=== PATIENT | female | born 1970 | race Caucasian/White ===

== ENCOUNTER → 2018-12-25 15:43 | Outpatient (CLI) | payer BC, SELFPAY ==
[2018-12-25 16:23] LABS: Basophils # 0.1 K/mm3 (0-0.2); Basophils % 0.5 % (0.1-2.0); Eosinophils # 0.3 K/mm3 (0.0-0.4); Eosinophils % 1.9 % (0.1-12.0); Hematocrit 44.7 % (37.0-47.0); Lymphocytes # 2.5 K/mm3 (0.7-4.5); Lymphocytes % 18.8 % (10-50); Mean Corpuscular HGB Conc 31.4 g/dL (31.8-35.4); Mean Platelet Volume 6.6 fl (7.4-10.4); Monocytes # 0.5 K/mm3 (0.1-1.0); Monocytes % 3.4 % (1.7-9.3); Neutrophils % 75.4 % (37.0-80.0); Platelet Count 431 K/mm3 (142-424); Red Blood Count 4.52 M/mm3 (4.20-5.40); Red Cell Distribution Width 13.6 % (11.5-17.5); White Blood Count 13.3 K/mm3 (4.8-10.8)
[2018-12-25 17:12] LABS: Alanine Aminotransferase 39 U/L (12-78); Albumin Level 4.4 gm/dL (3.4-5.0); Albumin/Globulin Ratio 1.2 (1.1-1.8); Alkaline Phosphatase 98 U/L (46-116); Aspartate Amino Transferase 21 U/L (15-37); Bilirubin,Total 0.2 mg/dL (0.2-1.0); Blood Urea Nitrogen 10 mg/dL (7-18); C-Reactive Protein 0.5 mg/dL (0.0-0.9); Calcium 9.5 mg/dL (8.5-10.1); Carbon Dioxide 26 mmol/L (21.0-32.0); Chloride 103 mmol/L (98-107); Creatinine,Serum 0.56 mg/dL (0.55-1.02); Estimated Glomerular Filt Rate 115 ml/min (>60); GFR (African American) 139 ML/MIN (>60); Globulin 3.6 gm/dl (1.3-3.2); Glucose 99 mg/dL (74-106); Sodium 141 mmol/L (136-145)
[2018-12-25 17:39] LABS: Erythrocyte Sedimentation Rate 13 mm/hr (0-20)
[2018-12-25 18:19] LABS: Amphetamine/Metha Screen,Urine Negative ng/mL (<1000); Barbiturates Screen,Urine Negative ng/mL (<200); Benzodiazepines Screen,Urine Negative ng/mL (<200); Cannabinoid Screen,Urine Negative ng/mL (<50); Cocaine Screen,Urine Negative ng/mL (<300); Methadone Screen,Urine Negative ng/mL (<300); Opiate Screen,Urine Negative ng/mL (<300); Phencyclidine Screen,Urine Negative ng/mL (<25)
[2018-12-27 16:53] LABS: Vitamin B12 282 pg/mL (232-1245); Vitamin D 25 Hydroxy 14.8 ng/mL (30.0-100.0)
== END ==
PROVIDERS: PCP Internal Medicine Adolescent Medicine; Visit Provider Nurse Practitioner Family
DX: R53.83 Other fatigue (principal); M12.9 Arthropathy, unspecified
CPT/HCPCS: 36415; 80053; 80305; 82607; 82652; 85025; 85651; 86140

== ENCOUNTER 2019-09-10 19:02 | Emergency (ER) | payer BC, SELFPAY ==
[2019-09-10 19:02] VITALS: BP 138/101; PULSE 77; RESP 16; TEMP 36.8; O2SAT 98; BMI 26.8
--- NOTE | 2019-09-10 19:05 | CT_ITS ---
PROCEDURE: CT ABDOMEN PELVIS W CON CLINICAL INDICATION: LLQ abdominal pain COMPARISON: No exams were available for comparison TECHNIQUE: IV Contrast: 75ML OPTIRAY 350 Oral Contrast none Axial images obtained with sagittal and coronal reformats. All CT scans at the facility use one or more dose reduction, viz: automated exposure control, ma/kV adjustment per patient size (including targeted exams where dose is matched to indication, i.e. head), or iterative reconstruction technique. FINDINGS: LOWER THORAX: There is a faint nodular opacity in the right middle lobe which measures approximately 5 mm. ABDOMEN & PELVIS: There is mild diffuse fatty liver infiltration. There is a 1 cm hypodensity in the quadrate area of the liver, segment 4. The spleen, adrenal glands, pancreas, has an unremarkable appearance. There is a 1 cm hypodensity in the right kidney consistent with a renal cyst. There is mild left hydronephrosis and hydroureter secondary to a 3 mm stone in the distal left ureter 2 cm proximal to the urinary bladder. No evidence of appendicitis, intestinal obstruction, free air, or diverticulitis. There is a small umbilical hernia which contains fat. No pelvic mass or abnormal fluid collection in the pelvis. IMPRESSION: 1. 3 mm left distal ureteral stone with left-sided obstructive uropathy. 2. Indeterminate 1 cm hypodense lesion of the quadrate area of the liver, segment 4. MRI with hemangioma protocol may provide further evaluation. 3. Indeterminate 5 mm right middle lobe nodule. Consider six-month follow-up Dictated by: Nolberto Quintanilla MD 09/11/2019 11:59 Electronically signed by Nolberto Quintanilla MD in [place] 09/11/2019 11:59
[2019-09-10 19:22] LABS: Microscopic, Urine URINE MICROSCOPIC (MICROSCOPIC)
[2019-09-10 19:28] LABS: Basophils # 0.1 K/mm3 (0-0.2); Basophils % 0.8 % (0.1-2.0); Eosinophils # 0.2 K/mm3 (0.0-0.4); Eosinophils % 1.3 % (0.1-12.0); Hematocrit 41.1 % (37.0-47.0); Hemoglobin 13.8 g/dL (12.2-16.2); Lymphocytes % 26.8 % (10-50); Mean Corpuscular HGB Conc 33.5 g/dL (31.8-35.4); Mean Corpuscular Hemoglobin 31.5 pg (27.0-31.2); Mean Platelet Volume 7.3 fl (7.4-10.4); Monocytes # 0.6 K/mm3 (0.1-1.0); Monocytes % 4.2 % (1.7-9.3); Neutrophils % 66.9 % (37.0-80.0); Platelet Count 371 K/mm3 (142-424); Red Blood Count 4.37 M/mm3 (4.20-5.40); Red Cell Distribution Width 14.3 % (11.5-17.5); White Blood Count 14.9 K/mm3 (4.8-10.8)
--- NOTE | 2019-09-10 19:28 | PC.NURSE ---
Pt to Radiology for CT
[2019-09-10 19:30] LABS: Chloride 105 mmol/L (98-107); Potassium 3.7 mmoL/L (3.5-5.1); Sodium 139 mmol/L (136-145)
[2019-09-10 19:32] LABS: Appearance,Urine CLEAR (Clear); Blood, Urine 3+ (Negative); Color,Urine YELLOW (Yellow); Glucose,Urine (UA) Negative (Negative); Ketones,Urine TRACE (Negative); Leukocyte Esterase,Urine TRACE (Negative); Nitrate,Urine Negative (Negative); PH,Urine 5.5 (5.0-8.5); Protein,Urine 1+ (Negative); Specific Gravity, Urine >= 1.030 (1.005-1.030); Urobilinogen,Urine 0.2 EU/dl (0.2)
[2019-09-10 19:33] LABS: Alanine Aminotransferase 26 U/L (12-78); Alkaline Phosphatase 88 U/L (38-126); Anion Gap 13.7 mEq/L (5-15); Aspartate Amino Transferase 22 U/L (14-36); Bilirubin,Total 0.6 mg/dl (0.2-1.3); Blood Urea Nitrogen 10 mg/dl (7-17); Calcium 9.7 mg/dl (8.4-10.2); Carbon Dioxide 24 mmol/L (22.0-30.0); Creatinine Clearance Estimated 101 mL/min (50-200); Estimated Glomerular Filt Rate 76 ml/min (>60); GFR (African American) 92 ML/MIN (>60); Glucose 126 mg/dl (74-100); Lipase 15 U/L (23-300)
[2019-09-10 19:34] LABS: Albumin Level 4.6 g/dl (3.5-5.0); Albumin/Globulin Ratio 1.6 (1.1-1.8); Globulin 2.9 g/dL (1.3-3.2); Total Protein,Serum 7.5 g/dl (6.3-8.2)
--- NOTE | 2019-09-10 19:34 | HMH.EDABDPAI ---
ED Disposition Clinical Impression: Nephrolithiasis Disposition: Home, Self-Care Condition on Discharge: Good Instructions: DI for Acute Abdomen, DI for Kidney Stones Additional Instructions: You have been evaluated for lower abdominal pain, diagnosed with a kidney stone that is in transit. Please take Tylenol as needed for anti-inflammatory and pain. Take Zofran for nausea and vomiting. Follow-up with your primary care doctor in 2 to 3 days for symptom recheck. Return to the emergency department if you have any new or worsening symptoms, fevers, vomiting, worsening pain. Prescriptions: Ketorolac Tromethamine [Toradol 10mg tablet] 10 mg PO Q6H 3 Days #20 tab Prescription Printed Ondansetron [Zofran 4mg ODT] 4 mg PO Q6 PRN 3 Days #12 tab.rapdis PRN Reason: Nausea Prescription Printed Referrals: Wilmer Ritter MD [Staff Physician] - Time of Disposition: 20:04 - Critical Care Critical Care Time: No Attestation: On 09/10/19, the high probability of a clinically significant, sudden or life threatening deterioration of the following system(s) required my full and direct attention, intervention and personal management. The time I documented below is in addition to time spent performing reported procedures but includes the following listed in this critical care notation. Medical Decision Making - Gavin Inquiry Pt receiving controlled substance: No Vital Signs: 09/10/19 19:02 Temperature 98.3 F Temperature Source Oral Pulse Rate [Left Radial] 77 Respiratory Rate 16 Blood Pressure [Right Arm] 138/101 H Blood Pressure Mean [Right Arm] 113 Blood Pressure Source [Right Arm] Automatic Cuff Blood Pressure Position [Right Arm] Sitting 02 Sat by Pulse Oximetry 98 Oxygen Delivery Method Room Air - Lab Data Lab Results 09/10/19 19:15: Urine Color Yellow, Urine Appearance Clear, Urine pH 5.5, Ur Specific [place] >= 1.030, Urine Protein 1+, Urine Glucose (UA) Negative, Urine Ketones Trace, Urine Blood 3+, Urine Nitrate Negative, Urine Bilirubin 1+ A, Urine Urobilinogen 0.2, Ur Leukocyte Esterase Trace, Urine RBC 20-50, Urine WBC 3-5, Ur Squamous Epith Cells 5-10, Urine Bacteria Trace 09/10/19 19:15: WBC 14.9 H, RBC 4.37, Hgb 13.8, Hct 41.1, MCV 94.0, MCH 31.5 H, MCHC 33.5, RDW 14.3, Plt Count 371, MPV 7.3 L, Neut % (Auto) 66.9, Lymph % (Auto) 26.8, [place] % (Auto) 4.2, Eos % (Auto) 1.3, Baso % (Auto) 0.8, Neut # (Auto) 10.0 H, Lymph # (Auto) 4.0, [place] # (Auto) 0.6, Eos # (Auto) 0.2, Baso # (Auto) 0.1 09/10/19 19:15: Sodium 139, Potassium 3.7, Chloride 105, Carbon Dioxide 24, Anion Gap 13.7, BUN 10, Creatinine 0.80, Estimated Creat Clear 101, Estimated GFR 76, Est GFR ( Amer) 92, Glucose 126 H, Calcium 9.7, Total Bilirubin 0.6, AST 22, ALT 26, Alkaline Phosphatase 88, Total Protein 7.5, Albumin 4.6, Globulin 2.9, Albumin/Globulin Ratio 1.6, Lipase 15 L Result diagrams: 09/10/19 19:15 09/10/19 19:15 Orders (Tests/Meds): ED MEDICATIONS Generic Name Dose Route Start Last Admin Trade Name Freq PRN Reason Stop Dose Admin Sodium Chloride 1,000 mls @ 999 mls/hr 09/10/19 19:30 09/10/19 19:24 Sod Chlor 0.9% 1000ml Bag IV 09/10/19 20:30 999 mls/hr .Q1H1M BUD Administration Discontinued Medications Generic Name Dose Route Start Last Admin Trade Name Freq PRN Reason Stop Dose Admin Ioversol 75 ml 09/10/19 19:47 09/10/19 19:49 Rad-Optiray 350 100ml Vial IV 09/10/19 19:48 75 ml ONCE ONE Administration Protocol Ketorolac Tromethamine 30 mg 09/10/19 19:22 09/10/19 19:23 Toradol 30mg/Ml Vial IV 09/10/19 19:23 30 mg ONCE ONE Administration Ondansetron HCl 4 mg 09/10/19 19:22 09/10/19 19:24 Zofran 4mg/2ml Vial IV 09/10/19 19:23 4 mg ONCE ONE Administration Sodium Chloride 10 ml 09/10/19 19:47 09/10/19 19:49 Rad-Saline Flush 10ml Syringe IV 09/10/19 19:48 10 ml ONCE ONE Administration ORDERS Category Date Time Status CT abdomen pelvi
[2019-09-10 19:43] LABS: Bilirubin,Urine 1+ (Negative)
[2019-09-10 19:47] LABS: RBC,Urine 20-50 #/hpf (0-3)
[2019-09-10 19:48] LABS: Bacteria,Urine Trace /lpf
[2019-09-10 20:25] VITALS: BP 159/93; PULSE 84; RESP 18; O2SAT 100
[2019-09-10 20:40] VITALS: BP 160/87; PULSE 92; RESP 16; TEMP 36.8; O2SAT 98
[2019-09-10 20:44] VITALS: BP 160/87; PULSE 87; RESP 18; O2SAT 97
== END 2019-09-10 20:51 | disposition home or self-care (01) ==
PROVIDERS: Emergency Provider Emergency Medicine; PCP Nurse Practitioner Family
DX: N13.2 Hydronephrosis with renal and ureteral calculous obstruction (principal); Z88.5 Allergy status to narcotic agent; F17.210 Nicotine dependence, cigarettes, uncomplicated
CPT/HCPCS: 74177; 80053; 81001; 83690; 85025; 96365; 96375; 99283; J2405; Q9967

== ENCOUNTER → 2019-09-16 13:39 | Outpatient (CLI) | payer BC, SELFPAY ==
--- NOTE | 2019-09-16 13:49 | XR_ITS ---
PROCEDURE: XR KUB CLINICAL INDICATION: left ureteral stone COMPARISON: CT ABDOMEN PELVIS W CON from 09/10/2019 FINDINGS: Gas pattern-The bowel gas pattern is unremarkable. No obvious obstruction. Calcifications-there is a phlebolith on both sides of the lower pelvis. The tiny distal left ureteral calculus seen on the CT scan abdomen pelvis stone protocol 09/10/2019 is not definitely seen and likely was passed. However there is a very tiny questionable opacity just inferior to the left SI joint which could be the distal ureteral calculus which has migrated superiorly or was pushed back with instrumentation. There is little or no stool to obscure adequate visualization of the lower pelvis. IMPRESSION: Probable interval passage of the small distal ureteral calculus left-side on previous CT exam, however see discussion above Dictated by: Dr. Kehinde Bates MD 09/16/2019 15:[address] Kehinde Bates MD in [place] 09/16/2019 15:02
== END ==
PROVIDERS: PCP Nurse Practitioner Family; Visit Provider Urology
DX: N20.1 Calculus of ureter (principal)
CPT/HCPCS: 74018

== ENCOUNTER → 2019-10-31 08:16 | Outpatient (CLI) | payer BC, SELFPAY ==
--- NOTE | 2019-10-31 08:25 | MM_ITS ---
PROCEDURE: MM DIG SCREENING MAMM BI W/CAD DIGITAL BREAST TOMOSYNTHESIS INCLUDED Patient Age:48Y CLINICAL INDICATION: SCREENING 48-year-old but no hormones no new complaints Family history. Paternal cousin with breast cancer premenopausal COMPARISON: DMSB DIG MAMM-SCREEN [place] from 03/23/2016 DMDXUAVR DIG MAMM-DX UNI A/VW-RT W/CAD from 04/20/2016 TECHNIQUE: Standard CC and MLO images were obtained. R2 CAD reviewed. Bilateral digital breast tomosynthesis included. FINDINGS: Low-density breast with generalized fatty replacement. No dominant nor suspicious mass; no suspicious calcifications. CAD highlights no areas of concern. Bilateral follow-up in 1 year recommended IMPRESSION: Stable mammogram No no significant change since prior studies t . Bilateral follow-up 1 year BI-RAD Category: 1 Negative FOLLOW-UP: 1YR 1 Year Follow-up (A letter has been sent to the patient regarding results of the study.) Dictated by: Garland Lemus MD 11/07/2019 10:37 Electronically signed by Garland Lemus MD in [place] 11/07/2019 10:37
--- NOTE | 2019-10-31 09:09 | MR_ITS ---
PROCEDURE: MR ABDOMEN WO/W CON CLINICAL INDICATION: LIVER LESION Abnormal ct. Diarrhea. 15ml prohance given. Lot: [id number] exp: Oct 2019 ct 09-10-19 COMPARISON: CT ABDOMEN PELVIS W CON from 09/10/2019 TECHNIQUE: Routine multiplanar multi echo sequences are performed without and with gadolinium enhancement with hemangioma protocol. FINDINGS: There was an area of decreased attenuation in the caudate lobe of the liver measuring approximately 8 mm. This area does show some decreased signal on the out of phase images suggesting an area of focal fatty infiltration. The liver does show other areas of heterogeneous decreased signal on the out of phase images consistent with heterogeneous fatty liver involvement. There is no abnormal enhancement in the area of concern. No abnormal T2 signal in this region as well. No other lesions are evident. There is a few small renal cysts. The spleen, pancreas, adrenal glands, and gallbladder have an unremarkable appearance. IMPRESSION: The area of concern in the caudate lobe of the liver is felt to be due to an area focal fatty infiltration along with other areas of fatty infiltration of the liver. Recommend six-month follow-up to confirm stability. Dictated by: Nolberto Quintanilla MD 11/01/2019 10:05 Electronically signed by Nolberto Quintanilla MD in [place] 11/01/2019 10:05
== END ==
PROVIDERS: PCP Nurse Practitioner Family; Visit Provider Nurse Practitioner Family
DX: Z12.31 Encounter for screening mammogram for malignant neoplasm of breast (principal); K76.9 Liver disease, unspecified
CPT/HCPCS: 74183; 77063; 77067; A9576

== ENCOUNTER → 2020-01-21 16:00 | Outpatient (CLI) | payer BC, SELFPAY ==
[2020-01-21 19:51] LABS: Coronavirus 19 IgG Antibody Negative (Negative); Coronavirus 19 IgM Antibody Negative (Negative)
== END ==
PROVIDERS: Visit Provider Internal Medicine Gastroenterology
DX: Z01.818 Encounter for other preprocedural examination (principal); Z12.11 Encounter for screening for malignant neoplasm of colon
CPT/HCPCS: 36415; 86328

== ENCOUNTER 2024-12-12 15:07 | Outpatient (CLI) | payer OTHER, SELFPAY ==
--- OUTSIDE RECORDS SUMMARY | 2024-07-12 17:30 | XMS_ITS ---
Author Organization [facility] CINDY Address [address] [place] [address] Care Team Providers Care Ground Host/Hostess Name Role Phone Wilfredo Maya Primary Care Provider McNees, Birdie Unavailable [phone] Wilfredo Maya Unavailable Unavailable Migration, Provider Unavailable Unavailable Allergies Allergen (clinical drug ingredient) Drug/Non Drug Allergy documented on EMR Reaction Allergy Type Onset Date Status codeine Codeine itching, vomiting Drug Allergy Active [facility] Conversion Encounter Medications Medication SIG (Take, [...] Active Encounters Encounter Location Date Provider Diagnosis [facility] [address] [facility] 36 [facility] [address] [place] [address] 07/12/2024 Provider Migration COPD exacerbation J44.1 Assessments [...] Appt Details Provider Name:Birdie Germain Jake Anna, 12/16/2024 03:45:00 PM, [address] [facility] [address] [facility], [address], [place], [address], Progress Notes * Karla DUNCAN DDOB:1970 (54 yo F)Acc No.[id number]:07/12/2024 Patient: Preston Karla GOMES Provider: Rosenda wyatt Migration :1970 A ge:53 Y S ex:Female Date:07/12/2024 Address:[address] Pcp:Wilfredo Maya Subjective: * Chief Complaints: [...] Electronic signature of Prov ider Migration on 12/12/2024 at 03:10 PM EDT Sign off status: Pending * Provider: Rosenda wyatt Migration Date: 07/12/2024 Generated for Chris diaz/Max/Carlinitting on: 0 12/12/2024 03:10 PM EDT
--- OUTSIDE RECORDS SUMMARY | 2024-08-08 11:00 | XMS_ITS ---
Author Organization [facility] CINDY Address [address] [facility] 36 [facility] [address] [place] [address] Care Team Providers Care Gearcase Assembler Name Role Phone Wilfredo Maya Primary Care Provider [phone] Birdie Chacon [phone] Wilfredo Maya Unavailable Unavailable REASON FOR VISIT annual Encounters Encounter Location Date Provider Diagnosis [address] [address] 08/08/2024 Birdie Chacon Plan Of Treatment Next Appt Details Provider Name:Birdie Rhoades, 12/16/2024 03:45:00 PM, [address], [address], [place], [address], Progress Notes * DAKOTA Karla DDOB:1970 (54 yo F)Acc No.[id number]:08/08/2024 Progress Notes Patient: Cindy NORRIShailee Lacy Provider: Mitzi Chacon APRN :1970 A ge:53 Y S ex:Female Date:08/08/2024 Address: [address], [place], [place] Pcp:Wilfredo Maya Subjective: * Chief Complaints: * 1 . Annual. * Medical History: Objective: * Vitals: Assessment: Plan: * Treatment: * * Electronic signature of Jan Chacon APRN on 12/12/2024 at 03:10 PM EDT Sign off status: Pending * Provider: Mitzi Chacon APRN Date: 0 08/08/2024 Generated for hCris diaz/Max/Tera on: 0 12/12/2024 03:10 PM EDT
--- OUTSIDE RECORDS SUMMARY | 2024-11-25 08:00 | XMS_ITS ---
Author Organization [facility] HARIKA Lacy CINDY Address [address] [facility] [address] [facility] [address] [place] [address] Care Team Providers Care Grinder Set Up Operator External Name Role Phone Wilfredo Maya Primary Care Provider Birdie Chacon Unavailable [phone] Wilfredo Maya Unavailable Unavailable Allergies Allergen (clinical drug ingredient) Drug/Non Drug Allergy documented on EMR Reaction Allergy Type Onset Date Status codeine Codeine itching, vomiting Drug Allergy Active Reason For Referral Reason CT lung cancer scree keisha, not on Sunday befor or the Sunday after Diagnosis 1 Tobacco use disorder (F17.200) Referral Organization [facility] BRAIN EMANUEL Referring Provider First Name Birdie Referring Provider Last Name Oswaldo Referring Provider Speciality [facility] ctice Referred Organization [facility] Referred Address [address] [place] [address], [facility] Referred Provider Specialty Diagnostic R adiology General Notes Su Carranza 2024 03:29:32 PM >sent to [facility] Referral Priority Routine REASON FOR VISIT Short [...] 11/25/2024 Encounters Encounter Location Date [facility] [address] [place], [place] [address] 11/25/2024 Birdie Oswaldo COPD with chronic bronchitis J44.89 ; Shortness [...] in 3-4 weeks for AWV and labs Pending Test Test Name Order Date CT Scan : Chest, Lung Cancer Screening 0 11/25/2024 Referrals Referral Date Details 11/25/2024 11/25/2024, CT lung cancer screening, not on Sunday befor or the Sunday after , [address], [place], [address], Next Appt Details Follow Up: 3 Weeks, Reason: Provider Name:Birdie Rhoades, 12/16/2024 03:45:00 PM, [address], [address], [place], [address], Progress Notes * Karla WATTS DDOB:1970 (54 yo F)Acc No.[id number]:11/25/2024 Progress Notes Patient: Preston JOSEPHCHRISPrestonKarla Provider: Mitzi Chacon APRN :1970 A ge:54 Y S ex:Female Date:11/25/2024 Address:[address] [place] Pcp:Wilfredo Maya Subjective: * Chief Complaints: * [...] use disorder - F17.200 Plan: * Treatment: Notes: Likely related to chronic bronchitits. Needs CT imaging given her ongoing tobacco use and recent weight loss . Change inhaler to Breztri, albuterol PRN Smoking cessation counseling provider RTC in 3-4 weeks for AWV and labs??2.?Shortness of breath?Imaging: CT Scan : Chest, Lung Cancer Screening* 3.?Tobacco use disorder?Imaging: CT Scan : Chest, Lung Cancer Screening* ? Referral To: ?Reason:CT lung cancer screening, not on Sunday be or the Sunday * Follow Up: 3 Weeks * * Sign off status: Completed true * Provider: Mitzi Chacon APRN Date: 0 11/25/2024 Generated for Chris diaz/Max/Carlinitting on: 0 12/12/2024 03:10 PM EDT History and Physical Notes * [...] Referring Provider Referred Provider Not es 11/25/2024 Oswaldo, Birdie , CT lung cancer screening, not on Sunday befor or the Sunday after Day
--- NOTE | 2024-12-12 15:11 | CT_ITS ---
FINAL REPORT TECHNIQUE: Thin section axial images were obtained through the lungs using a low-dose technique per lung cancer screening protocol. Reconstruction images were obtained using the axial data. Exam was performed using dose reduction technique. This study was performed with techniques to keep radiation doses as low as reasonably achievable (ALARA). Individualized dose reduction techniques using automated exposure control or adjustment of mA and/or kV according to the patient's size were employed. CLINICAL HISTORY: LUNG SCREENING, patient is currently a smoker and smokes a little over a half a pack a day. patient has been a smoker for approximately 40 years. patient stated that her doctor thinks she may be in the early stages of having COPD, but she has not been actually diagnosed with it. patient stated that her father had lung cancer. COMPARISON: None FINDINGS: CTDLvol: 2.90 DLP: 99.77 Current smoker 30 pack year history Lungs: No acute pulmonary abnormality. No suspicious nodules. There is evidence of remote granulomatous disease. Lymph nodes: No thoracic lymphadenopathy. Mediastinum: Heart size is normal. Prominent coronary artery calcifications are present. Pleura/pericardium: No pleural or pericardial effusion. Other: No acute abnormality in the upper abdomen. IMPRESSION: No suspicious pulmonary nodule or mass. Prominent coronary artery calcifications. Lung RADS: 1S, the S designation for prominent coronary artery calcifications. Recommendation: 12-month follow-up LDCT. Reviewed, Interpreted and Dictated by Alondra Real MD Transcribed by Christiane Ortiz Authenticated and [facility]
--- OUTSIDE RECORDS SUMMARY | 2024-12-12 15:11 | XMS_ITS | Patient Health Record ---
Author Organization [facility] HARIKA Lacy CINDY Address [address] [facility] [address] [place] [address] Care Team Providers Care Undercover Operator Name Role Phone Wilfredo Maya Primary Care Provider Birdie Chacon Unavailable [phone] Wilfredo Maya Unavailable Unavailable Maria Luisa Farley Unavailable [phone] Migration, Provider Unavailable Unavailable Allergies Allergen (clinical drug ingredient) Drug/Non Drug Allergy documented on EMR Reaction Allergy Type Onset Date Status codeine Codeine itching, vomiting Drug Allergy Active Reason For Referral Reason CT lung cancer scree keisha, not on Sunday befor or the Sunday Diagnosis 1 Tobacco use disorder (F17.200) Referral Organization [facility] BRAIN EMANUEL Referring Provider First Name Birdie Referring Provider Last Name Oswaldo Referring Provider Speciality Family [facility] ctice Referred Organization [facility] Referred Address [address] [place] [address] [address] [facility], [place], [place],[address], Referred Provider Specialty Diagnostic R adiology General Notes Su Carranza 2024 03:29:32 PM >sent to [facility] Referral Priority Routine Medications Medication SIG (Take, Route, Frequency, Duration) Notes Start Date End Date Status Loratadine 10 MG 1 tablet Orally Once a day; Duration: 30 days 09/15/2024 Active Ventolin HFA 108 (90 Base) MCG/ACT 2 puff(s) inhaled every 4 hours; Duration: 30 days 10/05/2022 Active Fluticasone Propionate 50 MCG/ACT as directed in each nostril once a day; Duration: 30 day(s) 04/20/2020 Active Breztri Aerosphere 160-9-4.8 MCG/ACT 2 puffs [...] Problem Status W/U Status Risk Notes Problem Pernicious anemia (19324500) Vitamin B12 deficiency anemia due to intrinsic factor deficiency (D51.0) Active confirmed Problem Simple chronic bronchitis (47682511) Simple chronic bronchitis (J41.0) Active confirmed Problem Mixed anxiety and depressive disorder (267692724) Depression with anxiety (F41.8) Active confirmed Problem Vitamin D deficiency (68450436) Vitamin D deficiency (E55.9) Active confirmed Problem Seasonal allergy (272180209) Seasonal allergies (J30.2) Active confirmed Problem Acute exacerbation of chronic obstructive airways disease (021520632) COPD exacerbation (J44.1) Active confirmed Problem 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) Arthritis, multiple joint involvement (M12.9) Active confirmed Problem COPD - Chronic obstructive pulmonary disease (64089917) Chronic obstructive pulmonary disease, unspecified COPD type (J44.9) Active confirmed Problem Solitary nodule of lung (517520334) Lung nodule (R91.1) Active confirmed Problem Anxiety (86946547) Situational anxiety (F41.8) Active confirmed Problem Left rotator cuff syndrome (338322029568292) Rotator cuff syndrome of left shoulder (M75.102) Active confirmed Problem Kidney stone (44367456) Left nephrolithiasis (N20.0) Active confirmed Problem Tobacco use (741377864) Tobacco use disorder (F17.200) Active confirmed Problem Otitis externa of left ear (6926695812110055) Inflammation of left ear canal (H60.92) Active confirmed Problem Lesion of liver (881216321) Liver lesion (K76.9) Active confirmed Problem Seasonal allergic rhinitis (361454383) Seasonal allergic rhinitis, unspecified trigger (J30.2) Active confirmed Problem Skin sensation disturbance (10777096) Complaint of paresthesia (R20.2) Active confirmed Problem 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) Active confirmed Vital Signs Heart Rate 78 /min 11/25/2024 Temperature 97.8 degrees Fahrenheit 11/25/2024 Oximetry 94 11/25/2024 Blood pressure diastolic 80 mm Hg 11/25/2024 Height 62.5 in 11/25/2024 Blood pressure systolic 130 mm Hg 11/25/2024 Weight 122.2 lbs 11/25/2024 BMI 21.99 kg/m2 11/25/2024 Encounters Encounter Location Date Provider Diagnosis [facility] [address] [facility] [address] [place] [address] 07/12/2024 Provider Migration COPD exacerbation J44.1 [facility] [address] [facility] [address] [place] [address] 07/17/2024 Birdie McKarlaes COPD exacerbation J44.1 [facility] [facility] [address] [address] 09/15/2024 Maria Luisa Farley COPD exacerbation J44.1 [facility] [address] [facility] [address] [place] [address] 11/25/2024 Birdie McNees COPD with chronic bronchitis J44.89 ; Shortness of breath R06.02 and Tobacco use disorder F17.200 [facility] [address] [facility] [address] [place] [address] 09/16/2024 Wilfredo Maya Assessments Encounter Date Diagnosis (ICD Code) Assessment Notes Treatment Notes Treatment Clinical Notes Section Notes 07/12/2024 COPD exacerbation (ICD-10 - J44.1) 07/17/2024 COPD exacerbation (ICD-10 - J44.1) Discussed the etiology and expected course of COPD exacerbation. Discussed the rationale for antibiotics use and the importance of completing the prescription as prescribed. Discussed supportive care. Discussed the signs and symptoms of worsening infection that may indicate need for reassessment in clinic/ED. 09/15/2024 COPD exacerbation (ICD-10 - J44.1) Stop Xyzal since afraid it will make her sleepy, start Loratadine. With unilateral wheezing and concern for weight loss will get CXR. I personally will review CXR report. Increase her Budesonide to bid. Discussed the etiology and expected course of COPD exacerbation. Just had Doxyxycline so will give Z omar for other atypical coverage. Discussed the rationale for antibiotic and prednisone use and the importance of completing the prescriptions as prescribed. Counseled to take Z omar. Discussed to take Prednisone with food in the mornings. Discussed supportive care for URI. Discussed the signs and symptoms of worsening infection that may indicate need for evaluation in clinic vs ED. Patient voices understanding and is agreeable to the plan of care above. 11/25/2024 Shortness of breath (ICD-10 - R06.02) 11/25/2024 COPD with chronic bronchitis (ICD-10 - J44.89) Likely related to chronic bronchitits. Needs CT imaging given her ongoing tobacco use and recent weight loss . Change inhaler to Breztri, albuterol PRN Smoking cessation counseling provider RTC in 3-4 weeks for AWV and labs 11/25/2024 Tobacco use disorder (ICD-10 - F17.200) Plan Of Treatment Pending Test Test Name Order Date X ray : Chest 04/24/2019 Urinalysis 10/17/2019 Mammogram : Bilateral 04/24/2019 Mammogram : Bilateral 01/31/2022 H-CMP 03/16/2016 H-LIPID PANEL 03/16/2016 H-RAPID PLASMA REAGIN 03/16/2016 H-HEPATITIS PROFILE (CHRONIC) 03/16/2016 Rapid Flu, A 07/03/2019 Rapid Flu, B 07/03/2019 X ray : Chest PA and Lateral 09/15/2024 CT Scan : Chest, Lung Cancer Screening 0 11/25/2024 CT Scan : Chest, Lung Cancer Screening 1 Next Appt Details Provider Name:Birdie Rhoades, 12/16/2024 03:45:00 PM, [address], [address], [place], [address], Insurance Providers Payer Name Payer Address Payer Phone Subscriber Number Group Number Insured Name Patient Relationship to Insured Coverage Start Date Coverage End Date [facility] [address] [place] [address] [phone] [id number] [place] Karla Duncan Self - patient is the insured Medications Administered Medication Instructions Date of Administration Dosage Notes Dexamethasone 4mg Injection 01/25/2022 4 mg Dexamethasone 4mg Injection 07/17/2024 4 mg Triamcinolone Acetonide 40mg Injection 12/25/2018 1 mL Triamcinolone Acetonide 40mg Injection 04/10/2019 1 mL Triamcinolone Acetonide 40mg Injection 04/20/2020 1 mL Kenalog 06/20/2016 1 mL Medical (General) History Medical History History ICD Code Asthma/COPD Anxiety Tobacco use Surgical History Surgery Date(Month/Year) Appendectomy 2000 D & C 1988 Hospitalization History Reason Date(Month/Year) childbirth 1986,1987,1997 above surgeries Heart Issues 2013
== END 2024-12-12 23:59 | disposition home or self-care (01) ==
LOC: RAD 15:08
PROVIDERS: PCP Nurse Practitioner Family; Visit Provider Nurse Practitioner Family
DX: I25.10 Atherosclerotic heart disease of native coronary artery without angina pectoris (principal); J44.89 Other specified chronic obstructive pulmonary disease; F17.210 Nicotine dependence, cigarettes, uncomplicated; Z80.1 Family history of malignant neoplasm of trachea, bronchus and lung; Z12.2 Encounter for screening for malignant neoplasm of respiratory organs
CPT/HCPCS: 71271

== ENCOUNTER 2025-01-02 16:48 | Outpatient (CLI) | payer OTHER, SELFPAY ==
--- OUTSIDE RECORDS SUMMARY | 2024-08-08 11:00 | XMS_ITS ---
Author Organization [facility] CINDY Address [address] [facility] 36 [facility] [address] [place] [address] Care Team Providers Care Industrial Maintenance Millwright Name Role Phone Wilfredo Maya Primary Care Provider Birdie Chacon [phone] Wilfredo Maya Unavailable Unavailable REASON FOR VISIT annual Encounters Encounter Location Date Provider Diagnosis [address] [address] 08/08/2024 Birdie Chacon Plan Of Treatment Next Appt Details Provider Name:Birdie Rhoades, 01/13/2025 04:30:00 PM, [address], [address], [place], [address], Progress Notes * DAKOTA Karla DDOB:1970 (54 yo F)Acc No.[id number]:08/08/2024 Progress Notes Patient: Preston GOMES Karla Lacy Provider: Mitzi Chacon APRN :1970 A ge:53 Y S ex:Female Date:08/08/2024 Address: [address], [place] Pcp:Wilfredo Maya Subjective: * Chief Complaints: * 1 . Annual. * Medical History: Objective: * Vitals: Assessment: Plan: * Treatment: * * Electronic signature of Jan Chacon APRN on 01/02/2025 at 04:51 PM EDT Sign off status: Pending * Provider: Mitzi Chacon APRN Date: 0 08/08/2024 Generated for Chris diaz/Max/Tera on: 0 01/02/2025 04:51 PM EDT
--- OUTSIDE RECORDS SUMMARY | 2024-11-25 08:00 | XMS_ITS ---
Author Organization [facility] HARIKA Lacy CINDY Address [address] [facility] [address] [place] [address] Care Team Providers Care Turbine Subassembler Name Role Phone Wilfredo Maya Primary Care Provider Birdie Chacon Unavailable [phone] Wilfredo Maya Unavailable Unavailable Allergies Allergen (clinical drug ingredient) Drug/Non Drug Allergy documented on EMR Reaction Allergy Type Onset Date Status codeine Codeine itching, vomiting Drug Allergy Active Results Component Value Reference Range Notes CT Scan : Chest, Lung Cancer Screening Reviewed date:12/16/2024 03:40:07 PM Interpretation: Performing Lab: Notes/Report: Reason For Referral Reason CT lung cancer scree keisha, not on Sunday befor or the Sunday after Diagnosis 1 Tobacco use disorder (F17.200) Referral Organization [facility] BRAIN EMANUEL Referring Provider First Name Birdie Referring Provider Last Name Oswaldo Referring Provider Speciality Family Pra ctice Referred Organization [facility] Referred Address [address] [place] [address] [address] [facility], [place],[address], Referred Provider Specialty Diagnostic R adiology General Notes Su Carranza 2024 03:29:32 PM >sent to [facility] Referral Priority Routine REASON FOR VISIT Short of breath, coughing Medications Medication SIG (Take, Route, Frequency, Duration) Notes Start Date End Date Status Ventolin HFA 108 (90 Base) MCG/ACT 2 puff(s) inhaled every 4 hours; Duration: 30 days 10/05/2022 Active Fluticasone Propionate 50 MCG/ACT as directed in each nostril once a day; Duration: 30 day(s) 04/20/2020 Active Loratadine 10 MG 1 tablet Orally Once a day; Duration: 30 days 09/15/2024 Active Breztri Aerosphere 160-9-4.8 MCG/ACT 2 puffs Inhalation Twice a day 11/25/2024 Active Social History Tobacco Use: Social History Observation Description Date Details (start date - stop date) Current Smoker NA - NA Smoking: Question Answer Notes Are you a: current smoker How often do you smoke cigarettes? every day How many cigarettes a day do you smoke? 6-10 How soon after you wake up d o you smoke your first cigarette? within 5 min Are you interested in quitting? Thinking about q uitting Additional Findings: Tobacco User Modera te cigarette smoker (10-19 cigs/day) Problems Problem Type SNOMED Code ICD Code Onset Dates Problem Status W/U Status Risk Notes Problem COPD with chronic bronchitis (J44.89) Active confirmed Vital Signs Temperature 97.8 degrees Fahrenheit 11/26/19 25 Blood pressure systolic 130 mm Hg 11/26/19 25 Blood pressure diastolic 80 mm Hg 025 Heart Rate 78 /min 11/25/2024 Height 62.5 in 11/25/2024 Weight 122.2 lbs 11/25/2024 BMI 21.99 kg/m2 11/25/2024 Oximetry 94 11/25/2024 Encounters Encounter Location Date Provider Diagnosis [facility] CINDY [address] [facility] [address] [place] [address] 11/25/2024 Birdie Fatimahes COPD with chronic bronchitis J44.89 ; Shortness of breath R06.02 and Tobacco use disorder F17.200 Assessments Encounter Date Diagnosis (ICD Code) Assessment Notes Treatment Notes Treatment Clinical Notes Section Notes 11/25/2024 COPD with chronic bronchitis (ICD-10 - J44.89) Likely related to chronic bronchitits. Needs CT imaging given her ongoing tobacco use and recent weight loss . Change inhaler to Breztri, albuterol PRN Smoking cessation counseling provider RTC in 3-4 weeks for AWV and labs 11/25/2024 Shortness of breath (ICD-10 - R06.02) 11/25/2024 Tobacco use disorder (ICD-10 - F17.200) Plan Of Treatment Medication Medication Name Sig Start Date Stop Date Notes Budesonide-Formoterol Fumarate 160-4.5 MCG/ACT 2 puffs Inhalation twice a day 07/17/2024 Breztri Aerosphere 160-9-4.8 MCG/ACT 2 puffs Inhalation Twice a day 11/25/2024 Treatment Notes Assessment Notes COPD with chronic bronchitis Likely related to chronic bronchitits. Needs CT imaging given her ongoing tobacco use and recent weight loss . Change inhaler to Breztri, albuterol PRN Smoking cessation counseling provider RTC in 3-4 weeks for AWV and labs Referrals Referral Date Details 11/25/2024 11/25/2024, CT lung cancer screening, not on Sunday befor or the Sunday after , [address], [place], [address], Next Appt Details Follow Up: 3 Weeks, Reason: Provider Name:Birdie Rhoades, 01/13/2025 04:30:00 PM, [address], [address], [place], [address], Progress Notes * Karla WATTS DDOB:1970 (54 yo F)Acc No.[id number]:11/25/2024 Progress Notes Patient: Karla NORRIS Provider: Mitzi Chacon APRN :1970 A ge:54 Y S ex:Female Date:11/25/2024 Address:[address] Pcp:Wilfredo Maya Subjective: * Chief Complaints: * 1 . Short of breath, coughing. * HPI: E NT/respiratory: 54 year old female presents with c/o cough. c/o shortness of breath. c/o wheeze. c/o chest congestion. Denies : sore throat. D enies : nasal congestion. D enies : fever. D enies : ear pain. D enies : rhinorrhea. D enies : postnasal drip. D enies : headache. Presents with lingering cough, congestion for months. No improvement despite steroids and abx x2. Still smoking, but down to less than a pack a day. MInimally productive, no cough or hemoptysis. Weight is down around 40lbs in the last year or two. * ROS: C ONSTITUTIONAL: no L oss of appetite. n o F ever. W eight loss? yes. D ERMATOLOGY: no R jakob. G ASTROENTEROLOGY: Reviewed, No Symptoms Reported: Y es. * Medical History: A sthma/COPD, Anxiety, Tobacco use. * Social History: S moking A re you a: c urrent smoker, H ow often do you smoke cigarettes? e very day, H ow many cigarettes a day do you smoke? 6 -10, H ow soon after you wake up do you smoke your first cigarette? w ithin 5 min, A re you interested in quitting? T hinking about quitting, A dditional Findings: Tobacco User M oderate cigarette smoker (10-19 cigs/day). R ecreational drug use: yes, Past use:marijuana- not used in 2 months. Exercise: no. Home smoke detector use: yes. Caffeine: yes, frequency:tea daily and coffee frequently. Living Will: No. Alcohol: no. Sexually active: no. Travel outside [place]: no. Occupation: unemployed. * Medications: T aking Fluticasone Propionate 50 MCG/ACT Suspension as directed in each nostril once a day , Taking Ventolin HFA 108 (90 Base) MCG/ACT Aerosol Solution 2 puff(s) inhaled every 4 hours , Taking Budesonide-Formoterol Fumarate 160-4.5 MCG/ACT Aerosol 2 puffs Inhalation twice a day , Taking Loratadine 10 MG Tablet 1 tablet Orally Once a day , Discontinued predniSONE 20 MG Tablet 2 tablet with food or milk Orally Once a day Take in the morning., Discontinued Azithromycin 250 MG Tablet 2 tablets once a day for 1 day, 1 tablet once a day for 4 days Orally daily , Discontinued Promethazine-DM 6.25-15 MG/5ML Syrup 5 mL orally every 6 hours As needed cough., Medication List reviewed and reconciled with the patient * Allergies: C odeine: itching, vomiting. Objective: * Vitals: N urse: jl, Pain: 0, Temp: 97.8, Pulse O2: 94, RR: 20, HR: 78, BP: 130/80, Ht: 62.5, Wt: 122.2, BMI:21.99. * Examination: G eneral Examination: General P leasant and Cooperative, NAD on RA,. Chest: n ormal shape and expansion. Heart: R egular Rate and Rhythm, no murmur, rubs or gallops. Lungs: c oarse in bases, otherwise clear. Abdomen: S oft, NTND, BSNA, No organomegaly or peritoneal signs.. Psych N ormal Mood/Affect. Assessment: * Assessment: 1. C OPD with chronic bronchitis - J44.89 (Primary) 2 . S hortness of breath - R06.02 3 . T obacco use disorder - F17.200 Plan: * Treatment: * Notes: Likely related to chronic bronchitits. Needs CT imaging given her ongoing tobacco use and recent weight loss . Change inhaler to Breztri, albuterol PRN Smoking cessation counseling provider RTC in 3-4 weeks for AWV and labs??2.?Shortness of breath?Imaging: CT Scan : Chest, Lung Cancer Screening* Su Carranza 11/25/2024 03: 28:18 PM EDT > CPT Code 01063 Description: CT Thorax LDCT scrn, w/o contrAuthorization Number: [id number] Number: [id number] Date: 11/25/2024 3:27:31 PMExpiration Date: 01/09/2025Gonzalo Alyssa Mitzi 12/16/2024 02:55:50 PM EDT >Birdie Chacon 12/16/2024 03:38:33 PM EDT > CT chest is stableBirdie Chacon 12/16/2024 03:39:58 PM EDT > will discuss at todayThis DI was reviewed by Birdie Chacon on 12/16/2024 at 15:40 PM EDT * 3.?Tobacco use disorder?Imaging: CT Scan : Chest, Lung Cancer Screening* Su Carranza 11/25/2024 03: 28:18 PM EDT > CPT Code 46459 Description: CT Thorax LDCT scrn, w/o contrAuthorization Number: [id number] Number: [id number] Date: 11/25/2024 3:27:31 PMExpiration Date: 01/09/2025Alyssa Sánchez 12/16/2024 02:55:50 PM EDT >Birdie Chacon 12/16/2024 03:38:33 PM EDT > CT chest is stableBirdie Chacon 12/16/2024 03:39:58 PM EDT > will discuss at FU todayThimilla PEREZ was reviewed by Birdei Chacon on 12/16/2024 at 15:40 PM EDT * ? Referral To: ?Reason:CT lung cancer screening, not on Sunday or the Sunday * Follow Up: 3 Weeks * * Sign off status: Completed true * Provider: Mitzi Chacon APRN Date: 0 11/25/2024 Generated for Chris diaz/Max/eTransmitting on: 0 01/02/2025 04:51 PM EDT History and Physical Notes * HPI (History of Present Illness) Category Sub-Category Detail Notes Category Not es ENT/respiratory sore throat Presents wit h lingering cough, congestion for months. No improvement despite steroids and abx x2. Still smoking, but down to less than a pack a day. MInimally productive, no cough or hemoptysis. Weight is down around 40lbs in the last year or two ear pain shortness of breath cough fever postnasal drip headache chest congestion rhinorrhea nasal congestion wheeze Examination Category Sub-Category Detail Notes Category Not es General Examination Heart: Regular Rate and Rhythm, no murmur, rubs or gallops Lungs: coarse in bases, oth erwise clear Abdomen: Soft, NTND, BSNA, No organomegaly or peritoneal signs. Chest: normal shape and exp ansion General Pleasant and Coopera tive, NAD on RA, Psych Normal Mood/Affect Consultation Request Notes Referral Date Referring Provider Referred Provider Not es 11/25/2024 Birdie Chacon , CT lung cancer screening, not on Sunday or the Sunday
--- OUTSIDE RECORDS SUMMARY | 2025-01-02 16:52 | XMS_ITS | Patient Health Record ---
Author Organization [facility] HARIKA Lacy CINDY Address [address] [facility] [address] [place] [address] Care Team Providers Care Director Of Provider Relations Name Role Phone Wilfredo Maya Primary Care Provider Birdie Chacon Unavailable [phone] Wilfredo Maya Unavailable Unavailable Maria Luisa Farley Unavailable [phone] Migration, Provider Unavailable Unavailable Allergies Allergen (clinical [...] 1 Tobacco use disorder (F17.200) Referral Organization [facility] BRAIN EMANUEL Referring Provider First Name Birdie Referring Provider Last Name Oswaldo Referring Provider Speciality Family Pra ctice Referred Organization [facility] Referred Address [address] [place], [place],[address],[place] Referred Provider Specialty Diagnostic R adiology General Notes Su Carranza 2024 03:29:32 PM >sent to [facility] Referral Priority Routine Reason Mammogram Diagnosis 1 Visit for screening mammogram (Z12.31) Referral Organization [facility] BREA EMANUEL Referring Provider First Name Birdie Referring Provider Last Name Oswaldo Referring Provider Speciality Family Pra ctice Referred Organization [facility] Referred Address [address] [place], [place],[address],[place] Referred Provider Specialty Diagnostic R adiology Referral Priority Routine Reason colonoscopy Dr. Lott ins Diagnosis 1 Colon cancer screeni ng (Z12.11) Referral Organization [facility] [place] Referring Provider First Name Birdie Referring Provider Last Name Oswaldo Referring Provider Speciality Family Ra allison Referred Organization [facility] Referred Address [address] [facility] [address] [facility], [place], [place],[address],[place] Referred Provider Specialty Gastroentero logy General Notes Su Carranza 2024 11:50:15 AM >sent to [facility] to schedule Dr stephenson Referral Priority Routine Medications Medication SIG (Take, Route, Frequency, Duration) Notes Start Date End Date Status Breztri Aerosphere 160-9-4.8 MCG/ACT 2 puffs Inhalation Twice a day 11/25/2024 Active Ventolin HFA 108 (90 Base) MCG/ACT 2 puff(s) inhaled every 4 hours; Duration: 30 days 10/05/2022 Active Loratadine 10 MG 1 tablet Orally Once a day; Duration: 30 days 09/15/2024 Active Fluticasone Propionate 50 MCG/ACT as directed in each nostril once a day; Duration: 30 day(s) 04/20/2020 Active Social History Tobacco Use: Social History [...] W/U Status Risk Notes Problem Pernicious anemia (42628407) Vitamin B12 deficiency anemia due to intrinsic factor deficiency (D51.0) Active confirmed Problem Simple chronic bronchitis (05091185) Simple chronic bronchitis (J41.0) Active confirmed Problem Mixed anxiety and depressive disorder (174246818) Depression with anxiety (F41.8) Active confirmed Problem Vitamin D deficiency (38524223) Vitamin D deficiency (E55.9) Active confirmed Problem Seasonal allergy (758275194) Seasonal allergies (J30.2) Active confirmed Problem Acute exacerbation of chronic obstructive airways disease (419966784) COPD exacerbation (J44.1) Active confirmed Problem Inflammatory polyarthropathy (261433563) Arthritis, multiple joint involvement (M12.9) Active confirmed Problem COPD - Chronic obstructive pulmonary disease (71713448) Chronic obstructive pulmonary disease, unspecified COPD type (J44.9) Active confirmed Problem Solitary nodule of lung (716980679) Lung nodule (R91.1) Active confirmed Problem Anxiety (48306692) Situational anxiety (F41.8) Active confirmed Problem Left rotator cuff syndrome (077377113102870) Rotator cuff syndrome of left shoulder (M75.102) Active confirmed Problem Kidney stone (41026723) Left nephrolithiasis (N20.0) Active confirmed Problem Tobacco use (807045563) Tobacco use disorder (F17.200) Active confirmed Problem Otitis externa of left ear (7454359478419256) Inflammation of left ear canal (H60.92) Active confirmed Problem Lesion of liver (001148976) Liver lesion (K76.9) Active confirmed Problem Liver nodule (435768032) Liver nodule (K76.89) Active confirmed Problem Seasonal allergic rhinitis (236784071) Seasonal allergic rhinitis, unspecified trigger (J30.2) Active confirmed Problem Skin sensation disturbance (55589354) Complaint of paresthesia (R20.2) Active confirmed Problem 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) Active confirmed Problem Atherosclerotic heart disease of [place] coronary artery without angina pectoris (384267735147389) Coronary artery calcification (I25.10) Active confirmed Vital Signs Heart Rate 94 /min 12/16/2024 Temperature 97.6 degrees Fahrenheit 12/16/2024 Oximetry 94 11/25/2024 Blood pressure diastolic 80 mm Hg 12/16/2024 Height 62.5 in 12/16/2024 Blood pressure systolic 126 mm Hg 12/16/2024 Weight 123.6 lbs 12/16/2024 BMI 22.24 kg/m2 12/16/2024 Encounters Encounter Location Date Provider Diagnosis [facility] [address] [place] [address] 07/12/2024 Provider Migration COPD exacerbation J44.1 [facility] [address] [place] [address] 07/17/2024 Birdie Chacon COPD exacerbation J44.1 [facility] [address] [facility] [address] [place], [place] [address] 09/15/2024 Maria Luisa Farley COPD exacerbation J44.1 [facility] [address] [place] [address] 11/25/2024 Birdie Chacon COPD with chronic bronchitis J44.89 ; Shortness of breath R06.02 and Tobacco use disorder F17.200 [facility] [address] [facility] [address] [place], [place] [address] 12/16/2024 Birdie Chacon Routine medical exam Z00.00 ; COPD with chronic bronchitis J44.89 ; Visit for screening mammogram Z12.31 ; Colon cancer screening Z12.11 ; Liver nodule K76.89 ; BMI 22.0-22.9, adult Z68.22 ; Left-sided chest pain R07.9 ; Weight loss R63.4 ; Hyperglycemia R73.9 ; Exertional dyspnea R06.09 ; Coronary artery calcification I25.10 and Tobacco use disorder F17.200 [facility] [address] [facility] [address] [place], [place] [address] 09/16/2024 Wilfredo Maya Assessments Encounter Date Diagnosis [...] in 3-4 weeks for AWV and labs 12/16/2024 Routine medical exam (ICD-10 - Z00.00) Advised to schedule pap Will arrange for mammogram and colonoscopy Advised to obtain Tdap from pharmacy Declined flu vaccine RTC for fasting labs, order provide 12/16/2024 COPD with chronic bronchitis (ICD-10 - J44.89) Discussed chronic bronchitis, causes and need for smoking cessation. Continue Breztri. Consider PFT at Fu 12/16/2024 Visit for screening mammogram (ICD-10 - Z12.31) 11/25/2024 Tobacco use disorder (ICD-10 - F17.200) 12/16/2024 Colon cancer screening (ICD-10 - Z12.11) 12/16/2024 Liver nodule (ICD-10 - K76.89) 12/16/2024 BMI 22.0-22.9, adult (ICD-10 - Z68.22) 12/16/2024 Left-sided chest pain (ICD-10 - R07.9) Needs cardiac CTA. High risk for CAD with promninent calcifications on CT chest and worsening SOA/left sided chest pain, will arrange 12/16/2024 Weight loss (ICD-10 - R63.4) Weight loss is concerning with little to no preventative healthcare and family h/o colon cancer, known liver nodule in 2020. Will obtain labs, update PVM and FU in 4 weeks, 12/16/2024 Hyperglycemia (ICD-10 - R73.9) 12/16/2024 Exertional dyspnea (ICD-10 - R06.09) 12/16/2024 Coronary artery calcification (ICD-10 - I25.10) 12/16/2024 Tobacco use disorder (ICD-10 - F17.200) Smoking cessation counseling. Plan Of Treatment Pending Test Test Name Order Date X ray : Chest 04/24/2019 Urinalysis 10/17/2019 Mammogram : Bilateral 04/24/2019 Mammogram : Bilateral 12/16/2024 Mammogram : Bilateral 01/31/2022 H-CMP 03/16/2016 H-LIPID PANEL 03/16/2016 H-RAPID PLASMA REAGIN 03/16/2016 H-HEPATITIS PROFILE (CHRONIC) 03/16/2016 Rapid Flu, A 07/03/2019 Rapid Flu, B 07/03/2019 X ray : Chest PA and Lateral 09/15/2024 M-Complete Blood Count Auto Diff 025 M-Comprehensive Metabolic Panel 12/17/19 M-Hemoglobin A1C 12/16/2024 M-Lipid Panel 12/16/2024 M-Thyroid Stimulating Hormone 12/16/2024 CT Scan : Chest, Lung Cancer Screening 1 MRI : Liver protocol 12/16/2024 CTA : Cardiac 12/16/2024 Next Appt Details Provider Name:Birdie Rhoades, 01/13/2025 04:30:00 PM, [address] [facility], [address], [place], [address], Insurance Providers Payer Name Payer Address Payer Phone Subscriber Number Group Number Insured Name Patient Relationship to Insured Coverage Start Date Coverage End Date [facility] [address] [place] [phone] [id number] Karla Reynoso Self - patient is the insured Medications [...] Tobacco use Surgical History Surgery Date(Month/Year) Appendectomy 2001 D & C 1989 Hospitalization History Reason Date(Month/Year) Heart Issues 2013 above surgeries childbirth 1987,1988,1997
--- NOTE | 2025-01-02 16:53 | MM_ITS ---
PROCEDURE INFORMATION: Exam: MG Bilateral Screening 3D Mammography Exam date and time: 01/02/2025 4:56 PM Age: 54 years old Clinical indication: Screening examination TECHNIQUE: Imaging protocol: Bilateral Screening tomosynthesis and 2D mammography including computer-aided detection (CAD) when performed. COMPARISON: 1. MG MM DIG SCREENING MAMM BI W/CAD 10/31/2019 8:30 AM 2. MG DMDXUAVR DIG MAMM-DX UNI A/VW-RT W/CAD 04/20/2016 3:29 PM FINDINGS: MAMMOGRAPHY: Breast composition: There are scattered areas of fibroglandular density. Mass: No suspicious masses. Architectural distortion: None. Calcifications: No suspicious calcifications. Asymmetric density: None. Skin thickening: None. Axillary adenopathy: None. IMPRESSION: No mammographic evidence of malignancy. Annual screening is recommended unless otherwise clinically indicated. ASSESSMENT: BI-RADS Category 1: Negative.
== END 2025-01-02 23:59 | disposition home or self-care (01) ==
LOC: RAD 16:50
PROVIDERS: PCP Nurse Practitioner Family; Visit Provider Nurse Practitioner Family
DX: Z12.31 Encounter for screening mammogram for malignant neoplasm of breast (principal); R92.323 Mammographic fibroglandular density, bilateral breasts
CPT/HCPCS: 77063; 77067

== ENCOUNTER 2025-01-19 11:07 | Outpatient (CLI) | payer OTHER, SELFPAY ==
--- OUTSIDE RECORDS SUMMARY | 2024-07-12 17:30 | XMS_ITS ---
Author Organization [facility] CINDY Address [address] [place] [address] Care Team Providers Care Legal Transcriptionist Name Role Phone Wilfredo Maya Primary Care Provider McNees, Birdie Unavailable [phone] Wilfredo Maya Unavailable Unavailable Migration, Provider Unavailable Unavailable Allergies Allergen (clinical drug ingredient) Drug/Non Drug Allergy documented on EMR Reaction Allergy Type Onset Date Status codeine Codeine itching, vomiting Drug Allergy Active [facility]ISIT [facility] Conversion Encounter Medications Medication SIG (Take, Route, Frequency, Duration) Notes Start Date End Date Status Ventolin HFA 108 (90 Base) MCG/ACT 2 puff(s) inhaled every 4 hours; Duration: 30 days 10/05/2022 Active BUDESONIDE-FORMOTER OL FUMARATE DIHYDRATE 160 MCG-4.5 MCG/INH 2 PUFF(S) INHALED 2 TIMES A DAY; Duration: 30 DAYS *Please review for potential replacement for e-prescription and drug interaction check* 09/16/2019 Active Promethazine-DM 6.25-15 MG/5ML 5 ml orally every 6 hours as needed; Duration: 10 day(s) 04/17/2022 Active Doxycycline Monohydrate 100 MG 1 tab(s) orally 2 times a day; Duration: 10 day(s) 04/17/2022 Active Nicotine 21 MG/24HR 1 patch transdermall y once a day; Duration: 30 days 01/25/2022 Active ALPRAZolam 0.5 MG 1 tab(s) orally BID PRN severe anxiety; Duration: 5 days 12/22/2020 Active Fluticasone Propionate 50 MCG/ACT as directed in each nostril once a day; Duration: 30 day(s) 04/20/2020 Active Xyzal Allergy 24HR 5 MG 1 tab(s) orally once a day (in the evening); Duration: 30 day(s) 01/12/2020 Active Encounters Encounter Location Date Provider Diagnosis [facility] [address] [facility] [address] [facility] [address] [place] [address] 07/12/2024 Provider Migration COPD exacerbation J44.1 Assessments Encounter Date Diagnosis (ICD Code) Assessment Notes Treatment Notes Treatment Clinical Notes Section Notes 07/12/2024 COPD exacerbation (ICD-10 - J44.1) Plan Of Treatment Medication Medication Name Sig Start Date Stop Date Notes Ventolin HFA 108 (90 Base) MCG/ACT 2 puff(s) inhaled every 4 hours; Duration: 30 days 10/05/2022 Promethazine-DM 6.25-15 MG/5ML 5 ml oral ly every 6 hours as needed; Duration: 10 day(s) 04/17/2022 Doxycycline Monohydrate 100 MG 1 tab(s) orally 2 times a day; Duration: 10 day(s) 04/17/2022 Next Appt Details Provider Name:Birdie Germain Jake Anna, 02/10/2025 04:30:00 PM, [address] [facility] [address] [facility], [address], [place], [address], Progress Notes * Karla WATTS DDOB:1970 (54 yo F)Acc No.[id number]:07/12/2024 Patient: Preston Karla GOMES Provider: Rosenda wyatt Migration :1970 A ge:53 Y S ex:Female Date:07/12/2024 Address:[address] Pcp:Wilfredo Maya Subjective: * Chief Complaints: * 1 . Multum To Medispan Conversion Encounter. * Medical History: * Medications: T aking Xyzal Allergy 24HR 5 MG Tablet 1 tab(s) orally once a day (in the evening) , Taking Fluticasone Propionate 50 MCG/ACT Suspension as directed in each nostril once a day , Taking ALPRAZolam 0.5 MG Tablet 1 tab(s) orally BID PRN severe anxiety , Taking BUDESONIDE-FORMOTEROL FUMARATE DIHYDRATE 160 MCG-4.5 MCG/INH AEROSOL 2 PUFF(S) INHALED 2 TIMES A DAY , Notes to Pharmacist: *Please review for potential replacement for e-prescription and drug interaction check*, Taking Nicotine 21 MG/24HR Patch 24 Hour 1 patch transdermally once a day * Allergies: C odeine: itching, vomiting. Objective: * Vitals: Assessment: * Assessment: 1. C OPD exacerbation - J44.1 (Primary) Plan: * Treatment: 2. O thers Start Ventolin HFA Aerosol Solution, 108 (90 Base) MCG/ACT, 2 puff(s), inhaled, every 4 hours, 30 days, 1, Refills 5. * * Electronic signature of Prov ider Migration on 01/19/2025 at 11:11 AM EDT Sign off status: Pending * Provider: Rosenda wyatt Migration Date: 0 07/12/2024 Generated for Chris diaz/Max/Carlinitting on: 1 11:11 AM EDT
--- OUTSIDE RECORDS SUMMARY | 2024-08-08 11:00 | XMS_ITS ---
Author Organization [facility] CINDY Address [address] [facility] 36 [facility] [address] [place] [address] Care Team Providers Care Metalsmith Helper Name Role Phone Wilfredo Maya Primary Care Provider Birdie Chacon [phone] Wilfredo Maya Unavailable Unavailable REASON FOR VISIT annual Encounters Encounter Location Date Provider Diagnosis [address] [address] 08/08/2024 Birdie Chacon Plan Of Treatment Next Appt Details Provider Name:Birdie Rhoades, 02/10/2025 04:30:00 PM, [address], [address], [place], [address], Progress Notes * Karla WATTS DDOB:1970 (54 yo F)Acc No.[id number]:08/08/2024 Progress Notes Patient: Preston GOMES Karla Lacy Provider: Mitzi Chacon APRN :1970 A ge:53 Y S ex:Female Date:08/08/2024 Address: [address], [place] Pcp:Wilfredo Maya Subjective: * Chief Complaints: * 1 . Annual. * Medical History: Objective: * Vitals: Assessment: Plan: * Treatment: * * Electronic signature of Jan Chacon APRN on 01/19/2025 at 11:09 AM EDT Sign off status: Pending * Provider: Mitzi Chacon APRN Date: 0 08/08/2024 Generated for Chris diaz/Max/Tera on: 1 11:09 AM EDT
--- OUTSIDE RECORDS SUMMARY | 2024-11-25 08:00 | XMS_ITS ---
Author Organization [facility] HARIKA Lacy CINDY Address [address] [facility] [address] [facility] [address] [place] [address] Care Team Providers Care Photoflash Powder Mixer Name Role Phone Wilfredo Maya Primary Care Provider Birdie Chacon Unavailable [phone] Wilfredo Maya Unavailable Unavailable Allergies Allergen (clinical [...] 1 Tobacco use disorder (F17.200) Ref[facility]IN EMANUEL Referring Provider First Name Birdie Referring Provider Last Name Oswaldo Referring Provider Speciality Family Pra ctice Referred Organization [facility] Referred Address [address] [place] [address] [address] [facility], [place],[address], Referred Provider Specialty Diagnostic R adiology General Notes Su Carranza 2024 03:29:32 PM >sent to [facility] Referral Priority Routine REASON FOR VISIT [...] 11/25/2024 Encounters Encounter Location Date Provider Diagnosis [facility] CINDY [address] [facility] [address] [place] [address] 11/25/2024 Birdie Fatimahes COPD with chronic bronchitis [...] after , [address], [place], [address], Next Appt Details Follow Up: 3 Weeks, Reason: Provider Name:Birdie Rhoades, 02/10/2025 04:30:00 PM, [address], [address], [place], [address], Progress Notes * Karla WATTS DDOB:1970 (54 yo F)Acc No.[id number]:11/25/2024 Progress Notes Patient: Karla NORRIS Provider: Mitzi Chacon APRN :1970 A ge:54 Y S ex:Female Date:11/25/2024 Address:[address]-[address] Pcp:Wilfredo Maya Subjective: * Chief Complaints: [...] 03: 28:18 PM EDT > CPT Code 01814 Description: CT Thorax LDCT scrn, w/o contrAuthorization Number: [id number] Number: [id number] Date: 11/25/2024 3:27:31 PMExpiration Date: 01/09/2025Gonzalo Alyssa [...] 03: 28:18 PM EDT > CPT Code 24326 Description: CT Thorax LDCT scrn, w/o contrAuthorization Number: [id number] Number: [id number] Date: 11/25/2024 3:27:31 PMExpiration Date: 01/09/2025Alyssa Sánchez 12/16/2024 02:55:50 PM EDT >Birdie Chacon 12/16/2024 03:38:33 PM EDT > CT chest is stableBirdie Chacon 12/16/2024 03:39:58 PM EDT > will discuss at FU todayThimilla PEREZ was reviewed by Birdie Chacon on 12/16/2024 at 15:40 PM EDT * ? Referral To: ?Reason:CT lung cancer screening, not on Sunday or the Sunday * Follow Up: 3 Weeks * * Sign off status: Completed true * Provider: Mitzi Chacon APRN Date: 0 11/25/2024 Generated for Chris diaz/Max/eTransmitting on: 1 11:10 AM EDT History and Physical Notes * HPI [...]
--- OUTSIDE RECORDS SUMMARY | 2025-01-13 12:30 | XMS_ITS ---
Author Organization [facility] HARIKA Lacy CINDY Address [address] [place] [address] Care Team Providers Care Director Of Guidance Name Role Phone Wilfredo Maya Primary Care Provider Birdie Chacon Unavailable [phone] Wilfredo Maya Unavailable Unavailable Allergies Allergen (clinical drug ingredient) Drug/Non Drug Allergy documented on EMR Reaction Allergy Type Onset Date Status codeine Codeine itching, vomiting Drug Allergy Active Reason For Referral Reason MRI liver, Cardiac C CTA, colonoscopy Dr. Buckner- screening Diagnosis 1 Weight loss (R63.4) Referral Organization [facility] BRAIN EMANUEL Referring Provider First Name Birdie Referring Provider Last Name Oswaldo Referring Provider Speciality Family Pra ctice General Notes CTA -, MRI 10- , Colonoscopy - left with Dudley Referral Priority Routine Referral Appointment Date 01/19/2025 REASON FOR VISIT 4 week follow up Medications Medication SIG (Take, Route, Frequency, Duration) [...] User Modera te cigarette smoker (10-19 cigs/day) Vital Signs Temperature 97.9 degrees Fahrenheit 01/14/20 25 Blood pressure systolic 128 mm Hg 01/14/20 25 Blood pressure diastolic 84 mm Hg 025 Heart Rate 88 /min 01/13/2025 Height 62.5 in 01/13/2025 Weight 127.4 lbs 01/13/2025 BMI 22.93 kg/m2 01/13/2025 Encounters Encounter Location Date Provider Diagnosis [facility] PED CINDY [address] [place] [id number] 01/13/2025 Birdie Oswaldo Colon cancer screeni ng Z12.11 ; Weight loss R63.4 ; Liver nodule K76.89 ; BMI 22.0-22.9, adult Z68.22 ; Exertional dyspnea R06.09 ; Coronary artery calcification I25.10 ; Tobacco use disorder F17.200 and Tendinitis of right wrist M77.8 Assessments Encounter Date Diagnosis (ICD Code) Assessment Notes Treatment Notes Treatment Clinical Notes Section Notes 01/13/2025 Colon cancer screening (ICD-10 - Z12.11) 01/13/2025 Weight loss (ICD-10 - R63.4) Weight is up a few pounds which is reassuring. Remains some concern with little to no preventative healthcare and family h/o colon cancer, known liver nodule in 2020. Will obtain labs, c-scope and liver MRI 01/13/2025 Liver nodule (ICD-10 - K76.89) 01/13/2025 BMI 22.0-22.9, adult (ICD-10 - Z68.22) 01/13/2025 Exertional dyspnea (ICD-10 - R06.09) Stable. CCTA ordered and in process 01/13/2025 Coronary artery calcification (ICD-10 - I25.10) 01/13/2025 Tobacco use disorder (ICD-10 - F17.200) Smoking cessation counseling. 01/13/2025 Tendinitis of right wrist (ICD-10 - M77.8) Rest, ice, brace, nsaids discussed Plan Of Treatment Treatment Notes Assessment Notes Weight loss Weight is up a few p ounds which is reassuring. Remains some concern with little to no preventative healthcare and family h/o colon cancer, known liver nodule in 2020. Will obtain labs, c-scope and liver MRI Exertional dyspnea Stable. CCTA ordered and in process Tobacco use disorder Smoking cessation c ounseling. Tendinitis of right wrist Rest, ice, bra ce, nsaids discussed Referrals Referral Date Details 01/14/2025 01/14/2025, MRI live r, Cardiac CCTA, colonoscopy Dr. Buckner- screening Next Appt Details Follow Up: 4 Weeks, Reason: Provider Name:Birdie Rhoades, 02/10/2025 04:30:00 PM, [address], [place], [address], Progress Notes * Karla DUNCAN DDOB:1970 (54 yo F)Acc No.[id number]:01/13/2025 Progress Notes Patient: Karla NORRIS Provider: Mitzi Chacon APRN :1970 A ge:54 Y S ex:Female Date:01/13/2025 Address:[address] [id number] Pcp:Wilfredo Maya Subjective: * Chief Complaints: * 1 . 4 week follow up. * HPI: g en: 54 y/o female presents for FU on weight loss Recalled from previous visit -Patient moved to [place] and was without preventative c are for several years and lost to FU Past due for mammogram, colonoscopy, liver MRI. Weight is down around 40 lbs in the last year or so. Not trying to diet or lose weight. She is more active with recent job. Family h/o colon cancer. No previous c-scope. It was ordered but unable to complete due to family member who was driving dx with COVID-19. Last mammogram was several years ago and normal. Liver nodule with recommendation for 6 month FU in 2019. Today, weight is up around 3 pounds. Mammogram and screening CT of chest have been completed and look okay. She has not heard inregards to CCTA, liver MRI and c- scope. Labs ordered but not obtained. C/o right wrist pain. 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 No improvement since onset. Pain occurs with lifting and is worse at the end of the day. * ROS: R ESPIRATORY: Shortness of breath y es. C hest congestion y es.?Cough y es. C ARDIOLOGY: no D izziness. C hest pain y es. P alpitations?yes. n o L eg edema. S hortness of breath y es. C ONSTITUTIONAL: no L oss of appetite. n o F ever. W eight loss?yes. F atigue y es. D ERMATOLOGY: no R jakob. G ASTROENTEROLOGY: no H eartburn. n o V omiting. n o A bdominal pain. D iarrhea y es, l oose, chronic. n o C onstipation. n o B lood in stool. H EMATOLOGY/LYMPH: no S wollen glands. n o E asy bruising. ? * Medical History: A sthma/COPD, Anxiety, Tobacco use. * Surgical History: A ppendectomy 2000, D & C 1988. * Hospitalization/Major Diagno stic Procedure: c sparkledbirayneli 1986,1987,1997, above surgeries , Heart Issues 2012. * Family History: F ather: , lung cancer, diagnosed with Cancer, Heart Disease. M other: , colon cancer, diagnosed with Cancer, Hypertension. P aternal Grand Father: . P aternal Grand Mother: . M aternal Grand Father: . M aternal Grand Mother: . P aternal uncle: alive, one . P aternal aunt: alive, two . M aternal uncle: . M aternal aunt: . S iblings: alive, older brother-COPD, , emphysema.?Children: alive. 2 brother(s) . 1 son(s) , 2 daughter(s) - healthy. . * Social History: S moking A re [...] puff(s) inhaled every 4 hours , Taking Breztri Aerosphere 160-9-4.8 MCG/ACT Aerosol 2 puffs Inhalation Twice a day , Discontinued Loratadine 10 MG Tablet 1 tablet Orally Once a day , Medication List reviewed and reconciled with the patient * Allergies: C odeine: itching, vomiting. Objective: * Vitals: N urse: nm, Pain: 0, Temp: 97.9, RR: 20, HR: 88, BP: 128/84, Ht: 62.5, Wt: 127.4, BMI:22.93. * Examination: G eneral Examination: General P leasant and Cooperative, NAD on RA,. Heart: R egular Rate and Rhythm, no murmur, rubs or gallops. Lungs: c lear, diminished in bases. Skin: w ithout acute rashes. Extremities: r ight wrist, tenderness mid posterior wrist extending 2 cm up FA, pain with flexion, extension and rotation, no swelling or redness. neck s upple,, no thyromegaly,, no lymphadenopathy,. Psych N ormal Mood/Affect. Assessment: * Assessment: 1. W eight loss - R63.4 (Primary) 2 . C olon cancer screening - Z12.11 3 . L iver nodule - K76.89 4 . B HI 22.0-22.9, adult - Z68.22? 5. E xertional dyspnea - R06.09 6 . C oronary artery calcification - I25.10 7 . T obacco use disorder - F17.200 8 . T endinitis of right wrist - M77.8 Plan: * Treatment: 2. E xertional dyspnea Notes: Stable. CCTA ordered and in process 3. T obacco use disorder Notes: Smoking cessation counseling. 4. T endinitis of right wrist Notes: Rest, ice, brace, nsaids discussed * Follow Up: 4 Weeks * * Sign off status: Completed true * Provider: Mitzi Chacon APRN Date: Generated for Chris diaz/Max/Carlinitting on: 11:10 AM EDT History and Physical Notes * HPI (History of Present Illness) Category Sub-Category Detail Notes Category Not es gen 54 y/o female presents for FU on weight loss Recalled from previous visit -Patient moved to [place] and was without preventative care for several years and lost to FU Past due for mammogram, colonoscopy, liver MRI. Weight is down around 40 lbs in the last year or so. Not trying to diet or lose weight. She is more active with recent job. Family h/o colon cancer. No previous c-scope. It was ordered but unable to complete due to family member who was driving dx with COVID-19. Last mammogram was several years ago and normal. Liver nodule with recommendation for 6 month FU in 2019. Today, weight is up around 3 pounds. Mammogram and screening CT of chest have been completed and look okay. She has not heard inregards to CCTA, liver MRI and c-scope. Labs ordered but not obtained. C/o right wrist pain. 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 No improvement since onset. Pain occurs with lifting and is worse at the end of the day Examination Category Sub-Category Detail Notes Category Not es General Examination Heart: Regular Rate and Rhythm, no murmur, rubs or gallops Lungs: clear, diminished in bases Extremities: right wrist, tendern ess mid posterior wrist extending 2 cm up FA, pain with flexion, extension and rotation, no swelling or redness Skin: without acute rashes neck supple,, no thyromeg chaitanya,, no lymphadenopathy, General Pleasant and Coopera tive, NAD on RA, Psych Normal Mood/Affect Consultation Request Notes Referral Date Referring Provider Referred Provider Not es 01/14/2025 Birdie Chacon , MRI liver, Car diac CCTA, colonoscopy Dr. Buckner- screening
--- NOTE | 2025-01-19 11:10 | CT_ITS ---
APPROVED REPORT Burlap Spreader: CLINICAL INDICATION Chest Pain TECHNIQUE Image Acquisition: A 128 slice MDCT scanner ([employer] View) was used for data acquisition. A noncontrast coronary calcium scan was performed. A CT attenuation threshold of 130 Hounsfield units (HU) was used for the detection of calcium in contiguous voxels of 1 sq mm in area to be counted as individual lesions. Bolus tracking in the ascending aorta with a threshold of 180 HU was performed. Immediately afterwards, ECG synchronized cardiac CT was then performed from the cardiac base to apex using retrospective gating with ECG tube current modulation. A total of 85 mL of Isovue 370 mg/mL contrast medium was administered at 5 mL/sec followed by a saline flush using a biphasic injection protocol. A tube voltage of 120 KVp was used. The patient received the following medications prior to the cardiac CT. 50 mg of oral metoprolol 15 mg of oral ivabradine The average heart rate at the time of acquisition was 47 bpm and regular. Image Reconstruction Transaxial images were reconstructed at 0.67 mm slide thickness. Data was reviewed interactively on an advanced workstation capable of 2 and 3-dimensional displays in all conventional reconstruction formats, including multiplanar reformations, maximum intensity projections, curved multiplanar reformations, and volume rendered reconstructions. When applicable, selected routine images describing the relevant coronary anatomy and pathology were saved and sent to PACS. Complications None Technical Quality Overall image quality was fair. Coronary artery opacification was adequate. Total DLP (Dose-Length Product) is 2591.3 mGy-cm. The reported value represents the total of one or more individual components during the CT acquisition of this date and at this time, and as such, the same value may appear in more than one CT report depending on the interpreting/reporting physicians. COMPARISON None FINDINGS CT Coronary Calcium Scoring LMA (Left Main Artery) = 113 LAD (Left Anterior Descending) = 518 LCX (Left Coronary Circumflex) = 40 RCA (Right Coronary Artery) = 650 Total Calcium Score = 1321 using the AJ-130 method. The observed calcium score of 1321 is at 99th percentile for subjects of the same age, sex, and race/ethnicity. The interpretation of the calcium heart score is based on the following continuum*: 0 = no calcified plaque detected (risk of coronary artery disease is very low ??? less than 5%) 1-10 = calcium detected in extremely minimal levels (risk of coronary diseases is still low ??? less than 10%) 11-100 = mild levels of plaque detected with certainty (mild or minimal narrowing of heart arteries is likely) 101-400 = definite,at least moderate levels of plaque detected (relatively high risk of a heart attack within 3-5 years) >401-999 = extensive levels of plaque detected (high risk of heart attack, high levels of vascular disease are present, high likelihood of at least one significant coronary narrowing) *The calcium heart score quantifies the burden of coronary calcification/plaque in the coronary arteries. The calcium heart score is not able to evaluate the presence or burden of non-calcified (i.e. soft) plaque. There is also identifiable calcification in the ascending and descending thoracic aorta. Coronary CT Angiography The coronary arterial system is right dominant. Quantitative Stenosis Grading: Left Main (LM): The left main originates normally from the left sinus of Valsalva. The LM bifurcates into the left anterior descending artery and left circumflex artery. There is neck calcified/noncalcified plaque in the mid to distal LM segment, with approximately 50% luminal stenosis. Left Anterior Descending (LAD) and Diagonal Branches: The LAD gives off 3 diagonal branch(es). There is mixed calcified/noncalcified plaque in the proximal LAD and first diagonal branch, with up to 70-90% luminal stenosis. . There is no evidence of LAD-myocardial bridge. Left Circumflex (LCX) and Obtuse Marginals (OM): The LCX gives off 2 Obtuse Marginal (OM) branch(es). There is mixed calcified/noncalcified plaque in the proximal LCx and OM1 segments, with up to 50 to 70% luminal stenosis. Right Coronary Artery (RCA): The RCA originates normally from the right sinus of Valsalva. The RCA gives off a posterior descending artery (PDA) and posterolateral (PL) branches. There is mixed calcified/noncalcified plaque along the trajectory of the RCA, with up to 70-90% luminal stenosis in the mid RCA segment. Non-Coronary Cardiac Findings: Analysis of the left ventricular (LV) structure and function was performed after 3-D reconstruction of the LV from axial images, with user-corrected automatic contouring for assessment of LV volumes and user-defined reconstruction from oblique planes for measurement of 3-D cardiac structure and function. -The left ventricle systolic function is normal. -There is no left atrial appendage filling defect. Two right pulmonary veins and two left pulmonary veins drain normally into the left atrium. -No pericardial thickening or calcification. -Central and branch pulmonary arteries in the [id number] are unremarkable. -Thoracic aorta within the visualized thoracic aortic-branches in the [id number] is unremarkable. Extracardiac Structures No significant extra-cardiac findings. Note, however, that this study is focused on the cardiac findings. IMPRESSION -Presence of extensive coronary calcification with an Agatston score = 1321 using the AJ-130 method. -The observed calcium score of 1321 is at 99th percentile for subjects of the same age, sex, and race/ethnicity. -Severe, multivessel coronary disease, with likely evidence of significant flow-limiting atherosclerosis of the coronary arteries, including the LM segment. -CAD-RADS 5. Management recommendations per ACC/AHA guidelines*, as clinically appropriate. -Calcification in the ascending and descending thoracic aorta. *Recommendations: CAD RADS 0: Reassurance. Consider non-atherosclerotic causes of chest pain. CAD RADS 1: Consider non-atherosclerotic causes of chest pain. Consider preventive therapy and risk factor modification. CAD RADS 2: Consider non-atherosclerotic causes of chest pain. Consider preventive therapy and risk factor modification, particularly for patients with nonobstructive plaque in multiple segments. CAD RADS 3: Consider further functional testing. Consider symptom-guided anti-ischemic and preventive pharmacotherapy as well as risk factor modification per published guideline statements. CAD RADS 4A: Consider further functional testing or invasive coronary angiography with revascularization per published guideline statements. Consider symptom-guided anti-ischemic and preventive pharmacotherapy as well as risk factor modification per published guideline statements. CAD RADS 4B: Invasive coronary angiography recommended with revascularization per published guideline statements. Consider symptom-guided anti-ischemic and preventive pharmacotherapy as well as risk factor modification per published guideline statements. CAD RADS 5: Consider invasive angiography and/or viability assessment with revascularization per published guideline statements. Consider symptom-guided anti-ischemic and preventive pharmacotherapy as well as risk factor modification per published guideline statements. CRITICAL RESULT None COMMUNICATION Per this written report The coronary and cardiac findings of this CCTA were reviewed, reported, and signed by Danilo Morrison MD ([employer] [facility]) Conclusion Electronically signed by : Carri Morrison MD 01/20/2025 13:05:42
--- OUTSIDE RECORDS SUMMARY | 2025-01-19 11:11 | XMS_ITS | Patient Health Record ---
Author Organization [facility] BREA Lacy CINDY Address [address] [facility] [address] [place] [address] Care Team Providers Care Inpatient Services Director Name Role Phone Wilfredo Maya Primary Care Provider Birdie Chacon Unavailable [phone] Wilfredo Maya Unavailable Unavailable Maria Luisa Farley Unavailable [phone] Migration, Provider Unavailable Unavailable Allergies Allergen (clinical drug ingredient) Drug/Non Drug Allergy documented on EMR Reaction Allergy Type Onset Date Status codeine Codeine itching, vomiting Drug Allergy Active Results Component Value Reference Range Notes Mammogram : Bilateral Reviewed date:01/12/2025 11:39:59 AM Interpretation: Performing Lab: Notes/Report: CT Scan : Chest, Lung Cancer Screening Reviewed date:12/16/2024 03:40:07 PM Interpretation: Performing Lab: Notes/Report: Reason For Referral Reason CT lung cancer scree keisha, not on Sunday befor or the Sunday Diagnosis 1 Tobacco use disorder (F17.200) Referral Organization [facility] BREA EMANUEL Referring Provider First Name Birdie Referring Provider Last Name Oswaldo Referring Provider Speciality Family Pra ctice Referred Organization [facility] Referred Address [address] [facility] [place] Referred Provider Specialty Diagnostic R adiology General Notes Su Carranza 2024 03:29:32 PM >sent to [facility] Referral Priority Routine Reason Mammogram Diagnosis 1 Visit for screening mammogram (Z12.31) Referral Organization [facility] BREA EMANUEL Referring Provider First Name Birdie Referring Provider Last Name Oswaldo Referring Provider Speciality Family Pra ctice Referred Organization [facility] Referred Address [address] [facility] [address] [place], [place],[address],[place] Referred Provider Specialty Diagnostic R adiology Referral Priority Routine Reason colonoscopy Dr. Lott ins Diagnosis 1 Colon cancer screeni ng (Z12.11) [facility] Referring Provider First Name Birdie Referring Provider Last Name Oswaldo Referring Provider [facility] ctice Referred Organization [facility] Referred Address [address] [facility] [address] [place], [place],[address], Referred Provider Specialty Gastroentero logy General Notes Su Carranza 2024 11:50:15 AM >sent to [facility] to schedule Dr buckner Referral Priority Routine Reason MRI liver, Cardiac C CTA, colonoscopy Dr. Buckner- screening Diagnosis 1 Weight loss (R63.4) Referral [facility] Referring Provider First Name Birdie Referring Provider Last Name Oswaldo Referring Provider Speciality Family [facility] ctice General Notes CTA 10-, MRI 10- , Colonoscopy - left with Dudley Referral Priority Routine Referral Appointment Date 01/19/2025 Medications Medication SIG (Take, Route, Frequency, Duration) [...] W/U Status Risk Notes Problem Pernicious anemia (65983962) Vitamin B12 deficiency anemia due to intrinsic factor deficiency (D51.0) Active confirmed Problem Simple chronic bronchitis (60090559) Simple chronic bronchitis (J41.0) Active confirmed Problem Mixed anxiety and depressive disorder (053760443) Depression with anxiety (F41.8) Active confirmed Problem Vitamin D deficiency (30847042) Vitamin D deficiency (E55.9) Active confirmed Problem Seasonal allergy (181947050) Seasonal allergies (J30.2) Active confirmed Problem Acute exacerbation of chronic obstructive airways disease (561566901) COPD exacerbation (J44.1) Active confirmed Problem 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) Arthritis, multiple joint involvement (M12.9) Active confirmed Problem COPD - Chronic obstructive pulmonary disease (48382471) Chronic obstructive pulmonary disease, unspecified COPD type (J44.9) Active confirmed Problem Solitary nodule of lung (945644505) Lung nodule (R91.1) Active confirmed Problem Anxiety (65607422) Situational anxiety (F41.8) Active confirmed Problem Left rotator cuff syndrome (577527961291833) Rotator cuff syndrome of left shoulder (M75.102) Active confirmed Problem Kidney stone (97103789) Left nephrolithiasis (N20.0) Active confirmed Problem Tobacco use (272068919) Tobacco use disorder (F17.200) Active confirmed Problem Otitis externa of left ear (7000611945497277) Inflammation of left ear canal (H60.92) Active confirmed Problem Lesion of liver (988600753) Liver lesion (K76.9) Active confirmed Problem Liver nodule (453764933) Liver nodule (K76.89) Active confirmed Problem Seasonal allergic rhinitis (486207638) Seasonal allergic rhinitis, unspecified trigger (J30.2) Active confirmed Problem Skin sensation disturbance (75038989) Complaint of paresthesia (R20.2) Active confirmed Problem 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) Active confirmed Problem Atherosclerotic heart disease of [place] coronary artery without angina pectoris (020572039633398) Coronary artery calcification (I25.10) Active confirmed Vital Signs Heart Rate 88 /min 01/13/2025 Temperature 97.9 degrees Fahrenheit 01/13/2025 Oximetry 94 11/25/2024 Blood pressure diastolic 84 mm Hg 01/13/2025 Height 62.5 in 01/13/2025 Blood pressure systolic 128 mm Hg 01/13/2025 Weight 127.4 lbs 01/13/2025 BMI 22.93 kg/m2 01/13/2025 Encounters Encounter Location Date Provider Diagnosis [facility] C[facility] [address] [facility] [address] [place] [address] 07/12/2024 Provider Migration COPD exacerbation J44.1 [facility] C[facility] [address] [facility] [address] [place] [address] 07/17/2024 Birdie Chacon COPD exacerbation J44.1 [facility]E [address] [facility] [address] [place] [address] 09/15/2024 Maria Luisa Farley COPD exacerbation J44.1 [facility] [address] [facility] [address] [place] [address] 11/25/2024 Birdie Chacon COPD with chronic bronchitis J44.89 ; Shortness of breath R06.02 and Tobacco use disorder F17.200 [facility] [address] [place] [address] 12/16/2024 Birdie Chacon Routine medical exam Z00.00 ; COPD with chronic bronchitis J44.89 ; Visit for screening mammogram Z12.31 ; Colon cancer screening Z12.11 ; Liver nodule K76.89 ; BMI 22.0-22.9, adult Z68.22 ; Left-sided chest pain R07.9 ; Weight loss R63.4 ; Hyperglycemia R73.9 ; Exertional dyspnea R06.09 ; Coronary artery calcification I25.10 and Tobacco use disorder F17.200 [facility] [address] [place], [place] [address] 01/13/2025 Birdie Chacon Colon cancer screening Z12.11 ; Weight loss R63.4 ; Liver nodule K76.89 ; BMI 22.0-22.9, adult Z68.22 ; Exertional dyspnea R06.09 ; Coronary artery calcification I25.10 ; Tobacco use disorder F17.200 and Tendinitis of right wrist M77.8 [facility] [address] [facility] [address] [place], [place] [address] 09/16/2024 Wilfredo Maya [facility] [address] [facility] [address] [place] [address] 01/14/2025 Birdie JakeKarlathony [facility] [address] [place] [address] 01/15/2025 Birdie Chacon Assessments Encounter Date Diagnosis (ICD Code) Assessment [...] cessation. Continue Breztri. Consider PFT at Fu 01/13/2025 Weight loss (ICD-10 - R63.4) Weight is up a few pounds which is reassuring. Remains some concern with little to no preventative healthcare and family h/o colon cancer, known liver nodule in 2020. Will obtain labs, c-scope and liver MRI 01/13/2025 Colon cancer screening (ICD-10 - Z12.11) 01/13/2025 Liver nodule (ICD-10 - K76.89) 12/16/2024 Visit for screening mammogram (ICD-10 - Z12.31) 11/25/2024 Tobacco use disorder (ICD-10 - F17.200) 12/16/2024 Colon cancer screening (ICD-10 - Z12.11) 01/13/2025 BMI 22.0-22.9, adult (ICD-10 - Z68.22) 01/13/2025 Exertional dyspnea (ICD-10 - R06.09) Stable. CCTA ordered and in process 12/16/2024 Liver nodule (ICD-10 - K76.89) 12/16/2024 BMI 22.0-22.9, adult (ICD-10 - Z68.22) 01/13/2025 Coronary artery calcification (ICD-10 - I25.10) 12/16/2024 Left-sided chest pain (ICD-10 - R07.9) Needs cardiac CTA. High risk for CAD with promninent calcifications on CT chest and worsening SOA/left sided chest pain, will arrange 01/13/2025 Tobacco use disorder (ICD-10 - F17.200) Smoking cessation counseling. 01/13/2025 Tendinitis of right wrist (ICD-10 - M77.8) Rest, ice, brace, nsaids discussed 12/16/2024 Weight loss (ICD-10 - R63.4) Weight [...] Auto Diff 025 M-Comprehensive Metabolic Panel 12/17/19 25 M-Hemoglobin A1C 12/16/2024 M-Lipid Panel 12/16/2024 M-Thyroid Stimulating Hormone 12/16/2024 CT Scan : Chest, Lung Cancer Screening 1 MRI : Liver protocol 12/16/2024 CTA : Cardiac 12/16/2024 Next Appt Details Provider Name:Birdie Germain Jake Anna, 02/10/2025 04:30:00 PM, [address], [address], [place], [address], Insurance Providers Payer Name Payer Address Payer Phone Subscriber Number Group Number Insured Name Patient Relationship to Insured Coverage Start Date Coverage End Date [facility] [address] [place] [address] [id number] [place] Self - patient is the insured Medications [...] Surgery Date(Month/Year) Appendectomy 2001 D & C 1988 Hospitalization History Reason Date(Month/Year) Heart Issues 2013 above surgeries childbirth 1987,1987,1997
[2025-01-19 11:32] VITALS: BMI 21.6
[2025-01-19] MEDS: METOPROLOL TARTRATE 50MG TABLET PO (11:35)
[2025-01-19] MEDS: IVABRADINE HCL 7.5MG TABLET PO (11:35)
[2025-01-19 11:43] VITALS: BP 133/73; PULSE 84; RESP 18; TEMP 36.3; O2SAT 99
[2025-01-19 11:51] LABS: Chloride 102 mmol/L (98-107); Sodium 138 mmol/L (136-145)
[2025-01-19 11:52] LABS: Potassium 3.7 mmoL/L (3.5-5.1)
[2025-01-19 11:54] LABS: Blood Urea Nitrogen 8 mg/dl (7-17); Creatinine Clearance Estimated 96 mL/min (50-200); Creatinine,Serum 0.60 mg/dl (0.52-1.04); Estimated Glomerular Filt Rate 104 ml/min (>60); GFR (African American) 126 ML/MIN (>60)
[2025-01-19 11:55] LABS: Anion Gap 11.7 mEq/L (5-15); Calcium 9.1 mg/dl (8.4-10.2); Carbon Dioxide 28 mmol/L (22.0-30.0); Glucose 83 mg/dl (74-100)
[2025-01-19 12:30] VITALS: BP 109/73; PULSE 73; RESP 18; O2SAT 96
[2025-01-19 12:35] VITALS: BP 120/72; PULSE 51; RESP 18; O2SAT 99
[2025-01-19 12:40] VITALS: BP 107/63; PULSE 54; RESP 18; O2SAT 100
[2025-01-19] MEDS: ONDANSETRON 4MG/2ML VIAL 4 MG IV (12:51)
[2025-01-19] MEDS: IOPAMIDOL-370 (76%);100ML BOTTLE 85 ML IV (13:06)
[2025-01-19] MEDS: SODIUM CHLORIDE 0.9% 10ML SYR (RAD ONLY) 10 ML IV (13:06)
[2025-01-19] MEDS: 0.9 % SODIUM CHLORIDE 50 ML VIAL 40 ML IV (13:06)
== END 2025-01-19 23:59 | disposition home or self-care (01) ==
PROVIDERS: PCP Nurse Practitioner Family; Visit Provider Nurse Practitioner Family
DX: I25.10 Atherosclerotic heart disease of native coronary artery without angina pectoris (principal); I70.0 Atherosclerosis of aorta
CPT/HCPCS: 75574; 80048; J2405; Q9967

== ENCOUNTER 2025-01-27 08:31 | Outpatient (CLI) | payer OTHER, SELFPAY ==
--- OUTSIDE RECORDS SUMMARY | 2024-07-12 17:30 | XMS_ITS ---
Author Organization [facility] CINDY Address [address] [place] [address] Care Team Providers Care Lamp Shades Supervisor Name Role Phone Wilfredo Maya Primary Care Provider McNees, Birdie Unavailable [phone] Wilfredo Maya Unavailable Unavailable Migration, Provider Unavailable Unavailable Allergies Allergen (clinical drug ingredient) Drug/Non Drug Allergy documented on EMR Reaction Allergy Type Onset Date Status codeine Codeine itching, vomiting Drug Allergy Active REAS[facility] FOR VISIT [facility] Conversion Encounter Medications Medication SIG (Take, Route, [...] Active Encounters Encounter Location Date Provider Diagnosis [facility] [address] [facility] 36 [facility] [address] [place] [address] 07/12/2024 Provider Migration COPD exacerbation J44.1 Assessments [...] Germain Jake Anna, 02/10/2025 04:30:00 PM, [address] [facility] [address] [facility], [address], [place], [address], Progress Notes * Karla WATTS DDOB:1970 (54 yo F)Acc No.[id number]:07/12/2024 Patient: Preston Karla GOMES Provider: Rosenda wyatt Migration :1970 A ge:53 Y S ex:Female Date:07/12/2024 Address:[address] Pcp:Wilfredo Maya Subjective: * Chief Complaints: [...] Electronic signature of Prov ider Migration on 01/27/2025 at 08:33 AM EDT Sign off status: Pending * Provider: Rosenda wyatt Migration Date: 0 07/12/2024 Generated for Chris diaz/Max/Carlinitting on: 1 08:33 AM EDT
--- OUTSIDE RECORDS SUMMARY | 2024-08-08 11:00 | XMS_ITS ---
Author Organization [facility] CINDY Address [address] [facility] 36 [facility] [address] [place] [address] Care Team Providers Care City Tax Auditor Name Role Phone Wilfredo Maya Primary Care Provider [phone] Birdie Chacon [phone] Wilfredo Maya Unavailable Unavailable REASON FOR VISIT annual Encounters Encounter Location Date Provider Diagnosis [address] [address] 08/08/2024 Birdie Chacon Plan Of Treatment Next Appt Details Provider Name:Birdie Rhoades, 02/10/2025 04:30:00 PM, [address], [address], [place], [address], Progress Notes * Karla WATTS DDOB:1970 (54 yo F)Acc No.[id number]:08/08/2024 Progress Notes Patient: Preston GOMES Karla Lacy Provider: Mitzi Chacon APRN :1970 A ge:53 Y S ex:Female Date:08/08/2024 Address: [address], [place] Pcp:Wilfredo Maya Subjective: * Chief Complaints: * 1 . Annual. * Medical History: Objective: * Vitals: Assessment: Plan: * Treatment: * * Electronic signature of Jan Chacon APRN on 01/27/2025 at 08:33 AM EDT Sign off status: Pending * Provider: Mitzi Chacon APRN Date: 0 08/08/2024 Generated for Chris diaz/Max/Tera on: 1 08:33 AM EDT
--- OUTSIDE RECORDS SUMMARY | 2025-01-13 12:30 | XMS_ITS ---
Author Organization [facility] HARIKA Lacy CINDY Address [address] [place] [address] Care Team Providers Care Radiology Transcriptionist Name Role Phone Wilfredo Maya Primary Care Provider [phone] Birdie Chacon Unavailable [phone] Wilfredo Maya Unavailable Unavailable Allergies Allergen (clinical drug ingredient) Drug/Non Drug Allergy documented on EMR Reaction Allergy Type Onset Date Status codeine Codeine itching, vomiting Drug Allergy Active Reason For Referral Reason MRI liver, Cardiac C CTA, colonoscopy Dr. Buckner- screening Diagnosis 1 Weight loss (R63.4) Referral Organization [facility] BRAIN EMANUEL Referring Provider First Name Birdie Referring Provider Last Name Oswaldo Referring Provider Speciality Family Pra ctice General Notes CTA 01-19, MRI 01-27 , Colonoscopy - left with Dudley Referral [...] Signs Temperature 97.9 degrees Fahrenheit 01/14/20 25 Heart Rate 88 /min 01/13/2025 Blood pressure systolic 128 mm Hg 01/14/20 25 Blood pressure diastolic 84 mm Hg 025 Height 62.5 in 01/13/2025 Weight 127.4 lbs 01/13/2025 BMI 22.93 kg/m2 01/13/2025 Encounters Encounter Location Date Provider Diagnosis [facility] PED CINDY [address] [place] [phone] 01/13/2025 Birdie Oswaldo Colon cancer screeni ng [...] [address], [address], [place], [address], Progress Notes * Karla DUNCAN DDOB:1970 (54 yo F)Acc No.[id number]:01/13/2025 Progress Notes Patient: Karla NORRIS Provider: Mitzi Chacon APRN :1970 A ge:54 Y S ex:Female Date:01/13/2025 Address:[address] [phone] Pcp:Wilfredo Maya Subjective: * Chief Complaints: * 1 . 4 week follow up. * HPI: g en: 54 y/o female presents for FU on weight loss Recalled from previous visit -Patient moved to [place] and was without preventative c are for [...] 1988. * Hospitalization/Major Diagno stic Procedure: c sparkledbiryaneli 1986,1987,1997, above surgeries , Heart Issues 2012. [...] iver nodule - K76.89 4 . B PR 22.0-22.9, adult - Z68.22? 5. E xertional [...] true * Provider: Mitzi Chacon APRN Date: 1 Generated for Chris diaz/Max/Carlinitting on: 08:33 AM EDT History and Physical Notes * HPI (History of Present Illness) Category Sub-Category Detail Notes Category Not es gen 54 y/o female presents for FU on weight loss Recalled from previous visit -Patient moved to [place] and was without preventative care for several [...]
--- OUTSIDE RECORDS SUMMARY | 2025-01-27 08:34 | XMS_ITS | Patient Health Record ---
Author Organization [facility] Address [address] [place] [address] Care Team Providers Care Tuber Helper Name Role Phone Wilfredo Maya Primary Care Provider [phone] Fatimahthony Birdie Unavailable [phone] Wilfredo Maya Unavailable Unavailable Andi Farleyah Unavailable [phone] Migration, Provider Unavailable Unavailable Allergies Allergen (clinical drug ingredient) Drug/Non Drug Allergy documented on EMR Reaction Allergy Type Onset Date Status codeine Codeine itching, vomiting Drug Allergy Active Results Component Value Reference Range Notes Mammogram : Bilateral Reviewed date:01/12/2025 11:39:59 AM Interpretation: Performing Lab: Notes/Report: M-Basic Metabolic Panel Reviewed date:01/20/2025 09:13:52 AM Interpretation: Performing Lab: Notes/Report: NA 138 136-145 mmol/L K 3.7 3.5-5.1 mmoL/L CL 102 98-107 mmol/L CO2 28 22.0-30.0 mmol/L GAP 11.7 5-15 mEq/L BUN 8 7-17 mg/dl CREATT 0.60 0.52-1.04 mg/dl CRCLE 96 50-200 mL/min GFRAA 126 >60 ML/MIN EGFR 104 >60 ml/min GLU 83 74-100 mg/dl CA 9.1 8.4-10.2 mg/dl CT Scan : Chest, Lung Cancer Screening Reviewed date:12/16/2024 03:40:07 PM Interpretation: Performing Lab: Notes/Report: Reason For Referral Reason CT lung cancer scree keisha, not on Sunday befor or the Sunday after Labor Day Diagnosis 1 Tobacco use disorder (F17.200) Referral Organization [facility] BRAIN EMANUEL Referring Provider First Name Birdie Referring Provider Last Name Oswaldo [facility] Referred Organization [facility] Referred Address [address],[address],[place] Referred Provider Specialty Diagnostic R adiology General Notes Su Carranza 2024 03:29:32 PM >sent to [facility] Referral Priority Routine Reason Mammogram Diagnosis 1 Visit for screening mammogram (Z12.31) Referral Organization [facility] BRAIN EMANUEL Referring Provider First Name Birdie Referring Provider Last Name Oswaldo Referring Provider [facility] Pra ctice Referred Organization [facility] Referred Address [address] [place] [address], Referred Provider Specialty Diagnostic R adiology Referral Priority Routine Reason colonoscopy Dr. Lott ins Diagnosis 1 Colon cancer screeni ng (Z12.11) Referral Organization [facility] BRAIN EMANUEL Referring Provider First Name Birdie Referring Provider Last Name Oswaldo Referring Provider [facility] Pra ctice Referred Organization [facility] Referred Address [address],[address], Referred Provider Specialty Gastroentero logy General Notes Su Carranza 2024 11:50:15 AM >sent to [facility] to schedule Dr buckner Referral Priority Routine Reason MRI liver, Cardiac C CTA, colonoscopy Dr. Buckner- screening Diagnosis 1 Weight loss (R63.4) Referral Organization [facility] BRAIN EMANUEL Referring Provider First Name Birdie Referring Provider Last Name Oswaldo Ref[facility] General Notes CTA 10-13, MRI 10-21 , Colonoscopy - vm left with Dudley Referral Priority Routine Referral Appointment Date 01/19/2025 Reason Urgent Cardiology Re ferral- abnormal CCTA Referral Organization [facility] BRAIN EMANUEL Referring Provider First Name Birdie Referring Provider Last Name Oswaldo Referring Provider [facility] Family Pra ctice Referred Organization [facility] Referred Address [address],[address],[place] Referred Provider Specialty Cardiovascul ar Disease General Notes Su Carranza 2024 11:20:18 AM >Sent to Cardiology Referral Priority Urgent Medications Medication SIG (Take, Route, Frequency, Duration) Notes Start Date End Date Status David Aerosphere 160-9-4.8 MCG/ACT 2 puffs Inhalation Twice [...] W/U Status Risk Notes Problem Pernicious anemia (65302185) Vitamin B12 deficiency anemia due to intrinsic factor deficiency (D51.0) Active confirmed Problem Simple chronic bronchitis (49478588) Simple chronic bronchitis (J41.0) Active confirmed Problem Mixed anxiety and depressive disorder (369129960) Depression with anxiety (F41.8) Active confirmed Problem Vitamin D deficiency (23028679) Vitamin D deficiency (E55.9) Active confirmed Problem Seasonal allergy (806607608) Seasonal allergies (J30.2) Active confirmed Problem Acute exacerbation of chronic obstructive airways disease (983884822) COPD exacerbation (J44.1) Active confirmed Problem Inflammatory polyarthropathy (880251996) Arthritis, multiple joint involvement (M12.9) Active confirmed Problem COPD - Chronic obstructive pulmonary disease (79766659) Chronic obstructive pulmonary disease, unspecified COPD type (J44.9) Active confirmed Problem Solitary nodule of lung (414554626) Lung nodule (R91.1) Active confirmed Problem Anxiety (55123924) Situational anxiety (F41.8) Active confirmed Problem Left rotator cuff syndrome (892574129747778) Rotator cuff syndrome of left shoulder (M75.102) Active confirmed Problem Kidney stone (11707248) Left nephrolithiasis (N20.0) Active confirmed Problem Tobacco use (847241291) Tobacco use disorder (F17.200) Active confirmed Problem Otitis externa of left ear (4097473376106585) Inflammation of left ear canal (H60.92) Active confirmed Problem Lesion of liver (497669139) Liver lesion (K76.9) Active confirmed Problem Liver nodule (724853308) Liver nodule (K76.89) Active confirmed Problem Seasonal allergic rhinitis (191558207) Seasonal allergic rhinitis, unspecified trigger (J30.2) Active confirmed Problem Skin sensation disturbance (29729388) Complaint of paresthesia (R20.2) Active confirmed Problem 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) Active confirmed Problem Atherosclerotic heart disease of [place] coronary artery without angina pectoris (065060787512041) Coronary artery calcification (I25.10) Active confirmed Vital Signs Heart Rate 88 /min 01/13/2025 Temperature 97.9 degrees Fahrenheit 01/13/2025 Oximetry 94 11/25/2024 Blood pressure diastolic 84 mm Hg 01/13/2025 Height 62.5 in 01/13/2025 Blood pressure systolic 128 mm Hg 01/13/2025 Weight 127.4 lbs 01/13/2025 BMI 22.93 kg/m2 01/13/2025 Encounters Encounter Location Date Provider Diagnosis [facility] C[facility] [address] [place] [address] 07/12/2024 Provider Migration COPD exacerbation J44.1 [facility] [address] [place] [address] 07/17/2024 Birdie Chacon COPD exacerbation J44.1 [facility] [address] [address] 09/15/2024 Maria Luisa Farley COPD exacerbation J44.1 [facility] C[facility] [address] [place] [address] 11/25/2024 Birdie Chacon COPD with chronic bronchitis J44.89 ; Shortness of breath R06.02 and Tobacco use disorder F17.200 [facility] [address] [place] [address] 12/16/2024 Birdie Chacon Routine medical exam Z00.00 ; COPD with chronic bronchitis J44.89 ; Visit for screening mammogram Z12.31 ; Colon cancer screening Z12.11 ; Liver nodule K76.89 ; BMI 22.0-22.9, adult Z68.22 ; Left-sided chest pain R07.9 ; Weight loss R63.4 ; Hyperglycemia R73.9 ; Exertional dyspnea R06.09 ; Coronary artery calcification I25.10 and Tobacco use disorder F17.200 [facility] [address] [facility] [address] [place] [address] 01/13/2025 Birdie Chacon Colon cancer screening Z12.11 ; Weight loss R63.4 ; Liver nodule K76.89 ; BMI 22.0-22.9, adult Z68.22 ; Exertional dyspnea R06.09 ; Coronary artery calcification I25.10 ; Tobacco use disorder F17.200 and Tendinitis of right wrist M77.8 [facility] [address] [facility] [address] [place] [address] 09/16/2024 Wilfredo Maya [facility] [address] [place] [address] 01/14/2025 Birdie Chacon [facility] [address] [facility] [address] [place] [address] 01/15/2025 Birdie Chacon Assessments Encounter Date Diagnosis [...] h/o colon cancer, known liver nodule in 2019. Will obtain labs, update PVM and FU [...] 12/16/2024 Next Appt Details Provider Name:Birdie Rhoades, 02/10/2025 04:30:00 PM, [address], [address], [place], [address], Insurance Providers Payer Name Payer Address Payer Phone Subscriber Number Group Number Insured Name Patient Relationship to Insured Coverage Start Date Coverage End Date [facility] [address] [place] [address] [phone] [id number] [place] Karla Duncan Self - patient is [...] Date(Month/Year) Heart Issues 2013 above surgeries childbirth 1986,1988,1997
--- NOTE | 2025-01-27 08:35 | MR_ITS ---
FINAL REPORT TECHNIQUE: Multiplanar and multisequence MR imaging was performed through the abdomen before and after contrast administration. CLINICAL HISTORY: liver nodule x 5 years ago , never followed up with prior scan 11 ml prohance COMPARISON: CT of the abdomen and pelvis 09/10/2019 FINDINGS: LUNG BASES: Clear. LIVER: Normal signal intensity. No suspicious enhancing masses. No intrahepatic biliary dilation. GALLBLADDER: Normal. SPLEEN: Normal. ADRENAL GLANDS: Normal. PANCREAS: Normal signal intensity. No evidence of acute pancreatitis. No pancreatic ductal dilation. KIDNEYS: There are a few tiny less than 5 mm fluid signal foci in the right kidney that are consistent with renal cysts. No hydronephrosis. PERITONEUM/RETROPERITONEUM: No free fluid. LYMPH NODES: No adenopathy. BONES: No aggressive osseous lesion. SOFT TISSUES: Normal. IMPRESSION: No focal liver lesion is identified on the current exam. Reviewed, Interpreted and Dictated by Bandar Mckeon MD Transcribed by Christiane Ortiz Authenticated and [facility]
[2025-01-27] MEDS: 0.9 % SODIUM CHLORIDE 50 ML VIAL 20 ML IV (09:19)
[2025-01-27] MEDS: GADOTERIDOL INJ 20ML SYRINGE 11 ML IV (09:19)
[2025-01-27] MEDS: SODIUM CHLORIDE 0.9% 10ML SYR (RAD ONLY) 10 ML IV (09:19)
== END 2025-01-27 23:59 | disposition home or self-care (01) ==
LOC: RAD 08:31
PROVIDERS: PCP Nurse Practitioner Family; Visit Provider Nurse Practitioner Family
DX: K76.89 Other specified diseases of liver (principal)
CPT/HCPCS: 74183; A9576

== ENCOUNTER 2025-02-06 12:58 | Outpatient (CLI) | payer OTHER, SELFPAY ==
--- OUTSIDE RECORDS SUMMARY | 2024-07-12 17:30 | XMS_ITS ---
Author Organization [facility] CINDY Address [address] [place] [address] Care Team Providers Care Architecture Drafter Name Role Phone Wilfredo Maya Primary Care Provider McNees, Birdie Unavailable [phone] Wilfredo Maya Unavailable Unavailable Migration, Provider Unavailable Unavailable Allergies Allergen (clinical drug ingredient) Drug/Non Drug Allergy documented on EMR Reaction Allergy Type Onset Date Status codeine Codeine itching, vomiting Drug Allergy Active [facility]IT [facility] Conversion Encounter Medications Medication SIG (Take, [...] Active Encounters Encounter Location Date Provider Diagnosis [facility] [address] [facility] 36 [facility] [address] [place] [address] 07/12/2024 Provider Migration COPD exacerbation J44.1 Assessments [...] Germain Jake Anna, 02/10/2025 04:30:00 PM, [address] [facility] 36 [facility], [address], [place], [address], Progress Notes * Karla DUNCAN DDOB:1970 (54 yo F)Acc No.[id number]:07/12/2024 Patient: Preston Karla GOMES Provider: Rosenda wyatt Migration :1970 A ge:53 Y S ex:Female Date:07/12/2024 Address:[address] Pcp:Wilfredo Maya Subjective: * Chief Complaints: [...] Electronic signature of Prov ider Migration on 02/06/2025 at 01:03 PM EDT Sign off status: Pending * Provider: Rosenda wyatt Migration Date: 0 07/12/2024 Generated for Chris diaz/Max/Carlinitting on: 1 01:03 PM EDT
--- OUTSIDE RECORDS SUMMARY | 2024-08-08 11:00 | XMS_ITS ---
Author Organization [facility] D CINDY Address [address] [facility] [address] [facility] [address] [place] [address] Care Team Providers Care Claim Service Representative Name Role Phone Wilfredo Maya Primary Care Provider [phone] Birdie Chacon [phone] Wilfredo Maya Unavailable Unavailable REASON FOR VISIT annual Encounters Encounter Location Date Provider Diagnosis [address] [address] 08/08/2024 Birdie Chacon Plan Of Treatment Next Appt Details Provider Name:Birdie Rhoades, 02/10/2025 04:30:00 PM, [address], [address], [place], [address], Progress Notes * Karla WATTS DDOB:1970 (54 yo F)Acc No.[id number]:08/08/2024 Progress Notes Patient: Preston GOMES Karla Lacy Provider: Mitzi Chacon APRN :1970 A ge:53 Y S ex:Female Date:08/08/2024 Address: [address], [place] Pcp:Wilfredo Maya Subjective: * Chief Complaints: * 1 . Annual. * Medical History: Objective: * Vitals: Assessment: Plan: * Treatment: * * Electronic signature of Jan Chacon APRN on 02/06/2025 at 01:02 PM EDT Sign off status: Pending * Provider: Mitzi Chacon APRN Date: 0 08/08/2024 Generated for Chris diaz/Max/Tera on: 1 01:02 PM EDT
--- OUTSIDE RECORDS SUMMARY | 2025-01-13 12:30 | XMS_ITS ---
Author Organization [facility] HARIKA Lacy CINDY Address [address] [place] [address] Care Team Providers Care Supervisor Paste Mixing Name Role Phone Wilfredo Maya Primary Care Provider [phone] Birdie Chacon Unavailable [phone] Wilfredo Maya Unavailable Unavailable Allergies Allergen (clinical [...] Pra ctice General Notes CTA 01-19, MRI - , Colonoscopy - left with Dudley Referral [address] [place] [phone] 01/13/2025 Birdie Oswaldo Colon cancer screeni ng [...] [address], [address], [place], [address], Progress Notes * Karla DUNCAN DDOB:1970 (54 yo F)Acc No.[id number]:01/13/2025 Progress Notes Patient: Karla NORRIS Provider: Mitzi Chacon APRN :1970 A ge:54 Y S ex:Female Date:01/13/2025 Address:[address] [id number] Pcp:Wilfredo Maya Subjective: * Chief Complaints: * 1 . 4 week follow up. * HPI: g en: 54 y/o female presents for FU on weight loss Recalled from previous visit -Patient moved to [place] and was without preventative c are for [...] iver nodule - K76.89 4 . B WI 22.0-22.9, adult - Z68.22? 5. E xertional [...] Mitzi Chacon APRN Date: Generated for Chris diaz/Max/Tera on: 01:02 PM EDT History and Physical Notes * HPI (History of Present Illness) Category Sub-Category Detail Notes Category Not es gen 54 y/o female presents for FU on weight loss Recalled from previous visit -Patient moved to [place] and was without preventative care for several [...]
--- OUTSIDE RECORDS SUMMARY | 2025-01-28 10:45 | XMS_ITS ---
Author Organization [facility] D CINDY Address [address] [facility] [address] [facility] [address] [place] [address] Care Team Providers Care Accounts Payable Coordinator Name Role Phone Wilfredo Maya Primary Care Provider [phone] Birdie Chacon [phone] Wilfredo Maya Unavailable Unavailable REASON FOR VISIT Labs Encounters Encounter Location Date Provider Diagnosis [facility] [address] [facility] [address] [place] [address] 01/28/2025 Birdie Chacon Plan Of Treatment Next Appt Details Provider Name:Birdie Rhoades, 02/10/2025 04:30:00 PM, [address] [facility], [address], [place], [place], [address], Progress Notes * DAKOTACindyKarla DDOB:1970 (54 yo F)Acc No.[id number]:01/28/2025 LABS Patient: Karla NORRIS Provider: Mitzi Chacon APRN :1970 A ge:54 Y S ex:Female Date:01/28/2025 Address:[address] [facility] Pcp:Wilrfedo Maya Subjective: * Chief Complaints: * 1 . Labs. * Medical History: Objective: * Vitals: Assessment: Plan: * Treatment: * * Electronic signature of Jan Chacon APRN on 02/06/2025 at 01:02 PM EDT Sign off status: Pending * Provider: Mitzi Chacon APRN Date: 1 Generated for Chris diaz/Max/Tera on: 01:02 PM EDT
--- OUTSIDE RECORDS SUMMARY | 2025-01-30 10:30 | XMS_ITS ---
Author Organization [facility] Address [address] [place] [address] Care Team Providers Care Real Estate Sales Associate Name Role Phone Wilfredo Maya Primary Care Provider Birdie Chacon Unavailable [phone] Wilfredo Maya Unavailable Unavailable Emmy Catalan Unavailable [phone] Allergies Allergen (clinical drug ingredient) Drug/Non Drug Allergy documented on EMR Reaction Allergy Type Onset Date Status codeine Codeine itching, vomiting Drug Allergy Active REASON FOR VISIT Headache and productive cough-beige mucus Medications Medication SIG (Take, Route, Frequency, Duration) Notes Start Date End Date Status Ventolin HFA 108 (90 Base) MCG/ACT 2 puff(s) inhaled every 4 hours; Duration: 30 days 10/05/2022 Active Breztri Aerosphere 160-9-4.8 MCG/ACT 2 puffs Inhalation Twice a day 11/25/2024 Active Azithromycin 500 MG 1 tablet Orally olivia y; Duration: 3 days 09/15/2024 Active Fluticasone Propionate 50 MCG/ACT as directed in each nostril once a day; Duration: 30 day(s) 04/20/2020 Active predniSONE 20 MG 2 tablet with food or milk Orally Once a day; Duration: 5 days Take in the morning. 09/15/2024 Active Metoprolol Succinate ER 25 MG 1 tablet Orally Once a day; Duration: 30 day(s) 01/30/2025 Active Atorvastatin Calcium 80 MG 1 tablet Oral ly Once a day; Duration: 30 day(s) 01/30/2025 Active Social History Tobacco Use: Social History [...] cigarette smoker (10-19 cigs/day) Vital Signs Temperature 98 degrees Fahrenheit 01/30/2025 Blood pressure systolic 112 mm Hg 01/31/20 25 Blood pressure diastolic 70 mm Hg 025 Heart Rate 74 /min 01/30/2025 Height 62.5 in 01/30/2025 Weight 127.8 lbs 01/30/2025 BMI 23 kg/m2 01/30/2025 Encounters Encounter Location Date Provider Diagnosis [facility] [address] [place], [place] [address] 01/30/2025 Emmy Catalan COPD with acute exacerbation J44.1 and Seasonal allergic rhinitis, unspecified trigger J30.2 Assessments Encounter Date Diagnosis (ICD Code) Assessment Notes Treatment Notes Treatment Clinical Notes Section Notes 01/30/2025 COPD with acute exacerbation (ICD-10 - J44.1) Presentation today consistent with mild COPD exacerbation, no overt abnormalities on PE or on review of patient's VS to suggest acute pneumonia. Discussed rationale for antibiotic and steroid use and emphasized completing the prescriptions as prescribed. Will plan to start patient on a short course of azithromycin taken daily and prednisone with food in the mornings. Discussed supportive care for URI. Discussed the signs and symptoms of worsening infection that may indicate need for evaluation in clinic vs ED. Patient scheduled for a FU with Birdie in a couple weeks, FU sooner PRN. Patient voices understanding and is agreeable to the plan of care above. 01/30/2025 Seasonal allergic rhinitis, unspecified trigger (ICD-10 - J30.2) Refilled patient's flonase, also provided a sample of azelastine antihistamine nasal spray here in the office today. Discussed to use flonase qam and azelastine qhs. Plan Of Treatment Medication Medication Name Sig Start Date Stop Date Notes Azithromycin 500 MG 1 tablet Orally olivia y; Duration: 3 days 09/15/2024 predniSONE 20 MG 2 tablet with food o r milk Orally Once a day; Duration: 5 days 09/15/2024 Treatment Notes Assessment Notes COPD with acute exacerbation Presentation today consistent with mild COPD exacerbation, no overt abnormalities on PE or on review of patient's VS to suggest acute pneumonia. Discussed rationale for antibiotic and steroid use and emphasized completing the prescriptions as prescribed. Will plan to start patient on a short course of azithromycin taken daily and prednisone with food in the mornings. Discussed supportive care for URI. Discussed the signs and symptoms of worsening infection that may indicate need for evaluation in clinic vs ED. Patient scheduled for a FU with Birdie in a couple weeks, FU sooner PRN. Patient voices understanding and is agreeable to the plan of care above. Seasonal allergic rhinitis, unspecified trigger Refilled patient's flonase, also provide d a sample of azelastine antihistamine nasal spray here in the office today. Discussed to use flonase qam and azelastine qhs. Next Appt Details Follow Up: 2 Weeks, Reason: Routine chronic care FU and FU on recent illness with Birdie Provider Name:Birdie Rhoades, 02/10/2025 04:30:00 PM, [address], [address], [place], [address], Progress Notes * DAKOTACindyKarla DDOB:1970 (54 yo F)Acc No.[id number]:01/30/2025 Progress Notes Patient: Karla NORRIS Provider: FISH Jackson :1970 A ge:54 Y S ex:Female Date:01/30/2025 Address:[address] [address], [place], [place]-[id number] Pcp:Wilfredo Maya Subjective: * Chief Complaints: * 1 . Headache and productive cough-beige mucus. * HPI: E NT/respiratory: 54 y/o female with PMHx of COPD here with complaints of a persistent cough for 2 months that was dry but is now productive with myaer colored sputum. She also reports associated symptoms of intermittent chills without fever and rhinorrhea. No headache, fatigue/malaise, myalgias, nausea,vomiting, diarrhea, or new rashes. No recent sick contacts. She is using her Breztri inhaler as prescribed and her Ventolin inhaler as needed. She has some c oncern about developing these symptoms and wants to be well for her upcoming heart cath (date not yet specified). * Medical History: A sthma/COPD, Anxiety, Tobacco [...] 2 puffs Inhalation Twice a day , Taking Atorvastatin Calcium 80 MG Tablet 1 tablet Orally Once a day , Taking Metoprolol Succinate ER 25 MG Tablet Extended Release 24 Hour 1 tablet Orally Once a day , Medication List reviewed and reconciled with the patient * Allergies: C odeine: itching, vomiting. Objective: * Vitals: N urse: jl, Pain: 7, Temp: 98, RR: 18, HR: 74, BP: 112/70, Ht: 62.5, Wt: 127.8, BMI:23. * Examination: G eneral Examination: General P leasant and Cooperative, NAD on RA,. Heart: R egular Rate and Rhythm, no murmur, rubs or gallops. HEENT: M ild tonsillar erythema with PND and cobblestoning.?TM's normal.. Lungs: D iminished lung sounds/air entry in bases bilaterally. Otherwise, c lear to auscultation without wheezes/crackles, no sounds of focal consolidations, no chest wall tenderness to palpation.. Abdomen: S oft, NTND, BSNA, No organomegaly or peritoneal signs.. Skin: w ithout acute rashes. Extremities: r ight wrist, tenderness mid posterior wrist extending 2 cm up FA, pain with flexion, extension and rotation, no swelling or redness. neck s upple,, no thyromegaly,, no lymphadenopathy,. Psych N ormal Mood/Affect. Assessment: * Assessment: 1. C OPD with acute exacerbation - J44.1 (Primary) 2 . S easonal allergic rhinitis, unspecified trigger - J30.2 Plan: * Treatment: 2. S easonal allergic rhinitis, unspecified trigger Notes: Refilled patient's flonase, also provided a sample of azelastine antihistamine nasal spray here in the office today. Discussed to use flonase qam and azelastine qhs. * Follow Up: 2 Weeks (Reason: Routine chronic care FU and FU on recent illness with Birdie) * * Sign off status: Completed true * Provider: FISH Jackson Date: Generated for Printi ng/Andreyg/eTransmitting on: 01:03 PM EDT History and Physical Notes * Examination Category Sub-Category Detail Notes Category Not es General Examination HEENT: Mild tonsill ar erythema with PND and cobblestoning. TM's normal. Heart: Regular Rate and Rhy thm, no murmur, rubs or gallops Lungs: Diminished lung soun ds/air entry in bases bilaterally. Otherwise, clear to auscultation without wheezes/crackles, no sounds of focal consolidations, no chest wall tenderness to palpation. Abdomen: Soft, NTND, BSNA, No organomegaly or peritoneal signs. Extremities: right wrist, tendern ess mid posterior wrist extending 2 cm up FA, pain with flexion, extension and rotation, no swelling or redness Skin: without acute rashes neck supple,, no thyromeg chaitanya,, no lymphadenopathy, General Pleasant and Coopera tive, NAD on RA, Psych Normal Mood/Affect
--- NOTE | 2025-02-06 13:00 | CA_ITS ---
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 8.90 mmHg Mitral Valve MV A Velocity 85.0 (40-130 cm/s) E/A Ratio 0.73 Pulmonary Valve PV Peak Velocity 93.0 (50-150 cm/s) Tricuspid Valve TR P. Velocity 236.00 cm/s RAP Estimate 10.00 mmHg RVSP 32.40 mmHg Left Ventricle The left ventricle is normal size. Left ventricular systolic function is normal. The left ventricular ejection fraction is within the normal range. There is normal left ventricular wall thickness. There is normal LV segmental wall motion. The left ventricular diastolic function is normal. LVEF is 55% Right Ventricle The right ventricle is normal size. The right ventricular systolic function is normal. Atria The left atrium size is normal. The right atrium is mildly dilated. There is no color Doppler evidence of interatrial shunt. Aortic Valve The aortic valve opens well. There is no hemodynamically significant aortic valvular stenosis. No aortic regurgitation is present. Mitral Valve The mitral valve is normal in structure. No evidence of mitral valve stenosis. Trace mitral regurgitation is present. Tricuspid Valve The tricuspid valve leaflets are thin and pliable. Mild tricuspid regurgitation. RVSP is 20-25 mmHg. Pulmonic Valve The pulmonary valve is grossly normal in structure. Trace pulmonic valve regurgitation is present. Great Vessels The aortic root is normal in size. IVC is normal in size and collapses >50% with inspiration. Pericardium There is no pericardial effusion. Other Information Study Quality: Fair Conclusion Normal biventricular systolic function. Mild RA dilation. Mild TR. Electronically signed by : Carri Morrison MD 02/09/2025 00:35:53
--- OUTSIDE RECORDS SUMMARY | 2025-02-06 13:03 | XMS_ITS | Patient Health Record ---
Author Organization [facility] Address [address] [place] [address] Care Team Providers Care Drill Operator Automatic Name Role Phone Wilfredo Maya Primary Care Provider Fatimahthony Birdie Unavailable [phone] Wilfredo Maya Unavailable Unavailable Maria Luisa Farley Unavailable [phone] Migration, Provider Unavailable Unavailable Emmy Catalan Unavailable [phone] Allergies Allergen (clinical drug ingredient) Drug/Non Drug Allergy documented on EMR Reaction Allergy Type Onset Date Status codeine Codeine itching, vomiting Drug Allergy Active Results Component Value Reference Range Notes Mammogram : Bilateral Reviewed date:01/12/2025 11:39:59 AM Interpretation: Performing Lab: Notes/Report: MRI : Liver protocol Reviewed date:02/06/2025 11:55:33 AM Interpretation: Performing Lab: Notes/Report: HEPATIC FUNCTION PANEL (1025 6) Reviewed date:01/30/2025 08:40:15 AM Interpretation: Performing Lab:CB, [facility] [id number] [facility], [facility] HospitalLebkVL[address] Scott Frazier Notes/Report: PROTEIN, TOTAL 7.1 6.1-8.1 g/dL ALBUMIN 4.6 3.6-5.1 g/dL GLOBULIN 2.5 1.9-3.7 g/dL (calc) ALBUMIN/GLOBULIN RATIO 1.8 1.0-2.5 (calc) BILIRUBIN, TOTAL 0.3 0.2-1.2 mg/dL BILIRUBIN, DIRECT 0.0 < OR = 0.2 mg/dL BILIRUBIN, INDIRECT 0.3 0.2-1.2 mg/dL (calc) ALKALINE PHOSPHATASE 84 37-153 U/L AST 10 10-35 U/L ALT 11 6-29 U/L CBC (INCLUDES DIFF/PLT) (639 9) Reviewed date:01/30/2025 08:40:15 AM Interpretation: Performing Lab:[email or web address] [id number] [address] [employer], ZipmarkUgqrQS[address] Scott Frazier Notes/Report: WHITE BLOOD CELL COUNT 10.9 3.8-10.8 Thousand/ uL RED BLOOD CELL COUNT 4.39 3.80-5.10 Million/uL HEMOGLOBIN 14.0 11.7-15.5 g/dL HEMATOCRIT 42.4 35.0-45.0 % MCV 96.6 80.0-100.0 fL MCH 31.9 27.0-33.0 pg MCHC 33.0 32.0-36.0 g/dL For adults, a slight decrease in the calculated MCHC value (in the range of 30 to 32 g/dL) is most likely not clinically significant; however, it should be interpreted with caution in correlation with other red cell parameters and the patient's clinical condition. RDW 13.2 11.0-15.0 % PLATELET COUNT 400 140-400 Thousand/uL MPV 9.3 7.5-12.5 fL ABSOLUTE NEUTROPHILS 7292 2254-4712 cells/uL ABSOLUTE LYMPHOCYTES 2736 850-3900 cells/uL ABSOLUTE MONOCYTES 654 200-950 cells/uL ABSOLUTE EOSINOPHILS 153 15-500 cells/uL ABSOLUTE BASOPHILS 65 0-200 cells/uL NEUTROPHILS 66.9 LYMPHOCYTES 25.1 MONOCYTES 6.0 EOSINOPHILS 1.4 BASOPHILS 0.6 HEMOGLOBIN A1c (496) Reviewed date:01/30/2025 08:40:15 AM Interpretation: Performing Lab:[email or web address] [id number] [employer], ZipmarkWbfbDA[address] Scott Frazier Notes/Report: HEMOGLOBIN A1c 5.8 <5.7 % For someone without known diabetes, a hemoglobin A1c value between 5.7% and 6.4% is consistent with prediabetes and should be confirmed with a follow-up test. For someone with known diabetes, a value <7% indicates that their diabetes is well controlled. A1c targets should be individualized based on duration of diabetes, age, comorbid conditions, and other considerations. This assay result is consistent with an increased risk of diabetes. Currently, no consensus exists regarding use of hemoglobin A1c for diagnosis of diabetes for children. Your request to have a duplicate copy faxed has been acknowledged. Queued to: [id number] T4, FREE (866) Reviewed date:01/30/2025 08:40:15 AM Interpretation: Performing Lab:KELLY, [facility] [id number], [place] MkwhNS[address] Scott Frazier Notes/Report: T4, FREE 1.1 0.8-1.8 ng/dL TSH (899) Reviewed date:01/30/2025 08:40:15 AM Interpretation: Performing Lab:[facility], [employer] Rent[employer] MarketHynrUI[address] Scott Frazier Notes/Report: TSH 2.82 Reference Range > or = 20 Years 0.40-4.50 Ranges First trimester 0.26-2.66 Second trimester 0.55-2.73 Third trimester 0.43-2.91 MAGNESIUM (622) Reviewed date:01/30/2025 08:40:15 AM Interpretation: Performing Lab:[email or web address] [address], [employer] Rent[employer] MarketXaozLR[address] Scott Frazier Notes/Report: MAGNESIUM 2.4 1.5-2.5 mg/dL [facility] METABOLIC PANE (90471) Reviewed date:01/30/2025 08:40:15 AM Interpretation: Performing Lab:[facility], [employer] Rent[employer] MarketIzcdQM[address] Scott Frazier Notes/Report: GLUCOSE 83 65-99 mg/dL Fasting reference interval UREA NITROGEN (BUN) 10 7-25 mg/dL CREATININE 0.53 0.50-1.03 mg/dL EGFR 109 > OR = 60 mL/min/1.73m2 BUN/CREATININE RATIO SEE NOTE: 6-22 (calc) Not Reported: BUN and Creatinine are within reference range. SODIUM 141 135-146 mmol/L POTASSIUM 4.2 3.5-5.3 mmol/L CHLORIDE 105 98-110 mmol/L CARBON DIOXIDE 25 20-32 mmol/L CALCIUM 10.1 8.6-10.4 mg/dL PROTEIN, TOTAL 7.1 6.1-8.1 g/dL ALBUMIN 4.6 3.6-5.1 g/dL GLOBULIN 2.5 1.9-3.7 g/dL (calc) ALBUMIN/GLOBULIN RATIO 1.8 1.0-2.5 (calc) BILIRUBIN, TOTAL 0.3 0.2-1.2 mg/dL ALKALINE PHOSPHATASE 84 37-153 U/L AST 10 10-35 U/L ALT 11 6-29 U/L LIPID PANEL, STANDARD (7600) Reviewed date:01/30/2025 08:48:48 AM Interpretation: Performing Lab:CB, [facility] [address], [facility] HospitalMapxCW[address] Scott Frazier Notes/Report: CHOLESTEROL, TOTAL 274 <200 mg/dL HDL CHOLESTEROL 62 > OR = 50 mg/dL TRIGLYCERIDES 197 <150 mg/dL LDL-CHOLESTEROL 176 Reference range: <100 Desirable range <100 mg/dL for primary prevention; <70 mg/dL for patients with CHD or diabetic patients with > or = 2 CHD risk factors. LDL-C is now calculated using the Carlos-Angel calculation, which is a validated novel method providing better accuracy than the Friedewald equation in the estimation of LDL-C. Carlos SS et al. CHLOE. 2013;310(19): 0132-4180 (http://education.[employer], [employer].com/faq/NVD908) CHOL/HDLC RATIO 4.4 <5.0 (calc) NON HDL CHOLESTEROL 212 <130 mg/dL (calc) For patients with diabetes plus 1 major ASCVD risk factor, treating to a non-HDL-C goal of <100 mg/dL (LDL-C of <70 mg/dL) is considered a therapeutic option. M-Basic Metabolic Panel Reviewed date:01/20/2025 09:13:52 AM [...] 1 Tobacco use disorder (F17.200) Referral Organization [facility] BRAIN EMANUEL Referring Provider First Name Birdie Referring Provider Last Name Oswaldo Referring Provider [facility] ctice Referred Organization [facility] Referred Address [address] [place] [phone], Referred Provider Specialty Diagnostic R adiology General Notes Su Carranza 2024 03:29:32 PM >sent to [facility] Referral Priority Routine Reason Mammogram Diagnosis 1 Visit for screening mammogram (Z12.31) Referral Organization [facility] JENAE Referring Provider First Name Birdie Referring Provider Last Name Oswaldo Referring Provider [facility] ctice Referred Organization [facility] Referred Address [address] [place] [phone], Referred Provider Specialty Diagnostic R adiology Referral Priority Routine Reason colonoscopy Dr. Lott ins Diagnosis 1 Colon cancer screeni ng (Z12.11) Referral Organization [facility] BRAIN EMANUEL Referring Provider First Name Birdie Referring Provider Last Name Oswaldo Referring Provider [facility] ctice Referred Organization [facility] Referred Address [address] [place] [phone], Referred Provider Specialty Gastroentero logy General Notes Su Carranza 2024 11:50:15 AM >sent to [facility] to schedule Dr buckner Referral Priority Routine Reason MRI liver, Cardiac C CTA, colonoscopy Dr. Buckner- screening Diagnosis 1 Weight loss (R63.4) Referral Organization [facility] BRAIN EMANUEL Referring Provider First Name Birdie Referring Provider Last Name Oswaldo Referring Provider [facility] ctice General Notes CTA 10-13, MRI 10-21 , Colonoscopy - vm left with Dudley Referral Priority Routine Referral Appointment Date 01/19/2025 Reason Urgent Cardiology Re ferral- abnormal CCTA Referral Organization [facility] BRAIN EMANUEL Referring Provider First Name Birdie Referring Provider Last Name Oswaldo Referring Provider Speciality Family Pra ctice Referred Organization [facility] Referred Address [address], [place],[address],[place] Referred Provider Specialty Cardiovascul ar Disease General [...] a day; Duration: 30 day(s) 04/20/2020 Active Metoprolol Succinate ER 25 MG 1 tablet Orally Once a day; Duration: 30 day(s) 01/30/2025 Active predniSONE 20 MG 2 tablet with food or milk Orally Once a day; Duration: 5 days Take in the morning. 09/15/2024 Active Atorvastatin Calcium 80 MG 1 tablet [...] W/U Status Risk Notes Problem Pernicious anemia (99639088) Vitamin B12 deficiency anemia due to intrinsic factor deficiency (D51.0) Active confirmed Problem Simple chronic bronchitis (56302246) Simple chronic bronchitis (J41.0) Active confirmed Problem Mixed anxiety and depressive disorder (358040511) Depression with anxiety (F41.8) Active confirmed Problem Vitamin D deficiency (24898487) Vitamin D deficiency (E55.9) Active confirmed Problem Seasonal allergy (024943167) Seasonal allergies (J30.2) Active confirmed Problem Acute exacerbation of chronic obstructive airways disease (114708603) COPD exacerbation (J44.1) Active confirmed Problem 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) Arthritis, multiple joint involvement (M12.9) Active confirmed Problem COPD - Chronic obstructive pulmonary disease (45268497) Chronic obstructive pulmonary disease, unspecified COPD type (J44.9) Active confirmed Problem Solitary nodule of lung (505694117) Lung nodule (R91.1) Active confirmed Problem Anxiety (18014430) Situational anxiety (F41.8) Active confirmed Problem Left rotator cuff syndrome (006230398796623) Rotator cuff syndrome of left shoulder (M75.102) Active confirmed Problem Kidney stone (62383653) Left nephrolithiasis (N20.0) Active confirmed Problem Tobacco use (769605059) Tobacco use disorder (F17.200) Active confirmed Problem Otitis externa of left ear (2628679408647189) Inflammation of left ear canal (H60.92) Active confirmed Problem Lesion of liver (363866883) Liver lesion (K76.9) Active confirmed Problem Liver nodule (186857728) Liver nodule (K76.89) Active confirmed Problem Seasonal allergic rhinitis (611970906) Seasonal allergic rhinitis, unspecified trigger (J30.2) Active confirmed Problem Skin sensation disturbance (42081219) Complaint of paresthesia (R20.2) Active confirmed Problem 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) Active confirmed Problem Atherosclerotic heart disease of [place] coronary artery without angina pectoris (059643249523775) Coronary artery calcification (I25.10) Active confirmed Vital Signs Heart Rate 74 /min 01/30/2025 Temperature 98 degrees Fahrenheit 01/30/2025 Oximetry 94 11/25/2024 Blood pressure diastolic 70 mm Hg 01/30/2025 Height 62.5 in 01/30/2025 Blood pressure systolic 112 mm Hg 01/30/2025 Weight 127.8 lbs 01/30/2025 BMI 23 kg/m2 01/30/2025 Encounters Encounter Location Date Provider Diagnosis [facility] [address] [place] [phone] 07/12/2024 Provider Migration COPD exacerbation J44.1 [facility] [address] [facility] [address] [place], [place] [address] 01/28/2025 Birdie Chacon [facility] [address] [facility] [address] [place], [place] [address] 07/17/2024 Birdie Sheridanthony COPD exacerbation J44.1 [facility] [address] [place] [address] 09/15/2024 Maria Luisa Farley COPD exacerbation J44.1 [facility] [address] [facility] [address] [place], [place] [address] 11/25/2024 Birdie Chacon COPD with chronic bronchitis J44.89 ; Shortness of breath R06.02 and Tobacco use disorder F17.200 [facility] [address] [facility] [address] [place], [place] [address] 12/16/2024 Birdie Chacon Routine medical exam Z00.00 ; COPD with chronic bronchitis J44.89 ; Visit for screening mammogram Z12.31 ; Colon cancer screening Z12.11 ; Liver nodule K76.89 ; BMI 22.0-22.9, adult Z68.22 ; Left-sided chest pain R07.9 ; Weight loss R63.4 ; Hyperglycemia R73.9 ; Exertional dyspnea R06.09 ; Coronary artery calcification I25.10 and Tobacco use disorder F17.200 [facility] [address] [facility] [address] [place], [place] [address] 01/13/2025 Birdie JakeWilfrido Colon cancer screening Z12.11 ; Weight loss R63.4 ; Liver nodule K76.89 ; BMI 22.0-22.9, adult Z68.22 ; Exertional dyspnea R06.09 ; Coronary artery calcification I25.10 ; Tobacco use disorder F17.200 and Tendinitis of right wrist M77.8 [facility] [address] [facility] [address] [place] [address] 01/30/2025 Emmy Catalan COPD with acute exacerbation J44.1 and Seasonal allergic rhinitis, unspecified trigger J30.2 [facility] [address] [facility] [address] [place], [place] [address] 09/16/2024 Wilfredo Maya [facility] [address] [place], [place] [address] 01/14/2025 Birdie Chacon [facility] [address] [place], [place] [address] 01/15/2025 Birdie Chacon [facility] [address] [place], [place] [address] 01/30/2025 Wilfredo Maya Assessments Encounter Date Diagnosis (ICD [...] liver nodule in 2019. Will obtain labs, c-scope and liver MRI 01/13/2025 Colon cancer screening (ICD-10 - Z12.11) 01/30/2025 COPD with acute exacerbation (ICD-10 - [...] to use flonase qam and azelastine qhs. 01/13/2025 Liver nodule (ICD-10 - K76.89) 12/16/2024 [...] Order Date X ray : Chest 04/24/2019 Mammogram : Bilateral 04/24/2019 Mammogram : Bilateral [...] Scan : Chest, Lung Cancer Screening 1 CTA : Cardiac 12/16/2024 Next Appt Details Provider Name:Birdie Rhoades, 02/10/2025 04:30:00 PM, [address], [place], [address], Insurance Providers Payer Name Payer Address Payer Phone Subscriber Number Group Number Insured Name Patient Relationship to Insured Coverage Start Date Coverage End Date [employer] [address] [place] [address] [id number] [place] Self - patient is the insured [...]
== END 2025-02-06 23:59 | disposition home or self-care (01) ==
LOC: RT 12:59
PROVIDERS: PCP Nurse Practitioner Family; Visit Provider Internal Medicine
DX: I07.1 Rheumatic tricuspid insufficiency (principal); J44.9 Chronic obstructive pulmonary disease, unspecified; I25.10 Atherosclerotic heart disease of native coronary artery without angina pectoris; F17.200 Nicotine dependence, unspecified, uncomplicated; R93.1 Abnormal findings on diagnostic imaging of heart and coronary circulation
CPT/HCPCS: 93306

== ENCOUNTER 2025-02-20 07:42 | Day surgery (SDC) | payer OTHER, SELFPAY ==
[2025-02-20] VITALS (14 sets, daily range): BP systolic 107–165; BP diastolic 62–110; PULSE 54–85; RESP 15–20; TEMP 36.8–37.1; O2SAT 93–98; BMI 21.9
--- NOTE | 2025-02-20 07:04 | IR_ITS ---
APPROVED REPORT Patient Location: Outpatient Support Teacher: Wilmer Blankenship, RT (R) PROCEDURES Left heart catheterization Left ventriculogram Selective coronary angiogram Drug-eluting stent deployment to the mid and distal dominant right coronary artery INDICATION Coronary artery disease, Angina pectoris, High risk abnormal CCTA Informed consent was obtained prior to the procedure. COMPLICATIONS NONE Estimated Blood Loss: LESS THAN 10 ML TECHNIQUE One percent lidocaine used to anesthetize the right anterior aspect of the wrist. The right radial artery was accessed via the Seldinger technique. A 6 Samoan sheath was placed in the right radial artery. 2.5 mg of Verapamil, 800 mcg of nitroglycerin, 1mg Lidocaine and 5000 U Heparin were given through the arterial sheath. The JL3 catheter was also used to perform left heart catheterization, left ventriculogram and selective coronary angiogram. At the end of the diagnostic angiogram therapeutic heparin was administered giving a therapeutic ACT and the guide catheter was placed in the right coronary followed by Choice PT extra-support wire placed distally. A 3.5 x 38 mm Anthony frontier stent was deployed at 12 cecilio reducing the stenosis. A 3.75 x 12 mm noncompliant balloon was placed distally and the stent deployed at 20 cecilio pulled back half length each time and deployed at 20 cecilio to post dilate. Excellent angiographic results were obtained with MAGY-3 flow being present before and after the procedure. At the end of procedure the apparatus was removed the sheath was removed and hemostasis was achieved using TR banding patient was transferred to the postop boarding care in stable condition ANGIOGRAPHIC RESULTS The left main artery Has a distal eccentric 30 to 40% stenosis The left anterior descending artery Has proximal 20 to 30% stenosis mid vessel 40% calcified stenosis with additional mid vessel 30 and 40% stenosis. A large first diagonal artery has a proximal 50% calcified stenosis The circumflex artery Is nondominant and has a proximal concentric 60% calcified stenosis The right coronary artery Is large and dominant has mid vessel 40 and 50% stenosis with a distal concentric 70% stenosis. It gives rise to a very large posterior lateral branch which has a mid vessel 40% calcified stenosis. The posterior descending artery is widely patent The POSEY ventriculogram reveals Preserved 55% The left ventricular end-diastolic pressure 15 mmHg IMPRESSION Moderate distal left main coronary disease Moderate disease in the large first diagonal artery which extends into the mid LAD Moderate to severe disease in the circumflex artery which is best managed medically for the time being Severe disease in the distal dominant right coronary artery with successful stenting reducing the lesion to 0% with 1 long drug-eluting stent Preserved ejection fraction Borderline LVEDP PLAN 1. Dual antiplatelet therapy 2. LDL less than 55 to be achieved with high intensity statin 3. Avoidance of tobacco products 4. Risk factor modification 5. Cardiac rehabilitation 6. If patient continues to experience recalcitrant angina pectoris refractory to medical management consideration can be given to revascularize the circumflex artery and possibly the proximal LAD and diagonal combination. At this point I believe these lesions are asymptomatic Electronically signed by : Basilio Johnson MD 02/20/2025 09:47:50
[2025-02-20] MEDS: diazePAM 5MG TABLET 5 MG PO (08:03)
[2025-02-20 08:11] LABS: Hematocrit 39.8 % (37.0-47.0); Hemoglobin 13.1 g/dL (12.2-16.2); Immature Granulocytes % 0.4 %; Mean Corpuscular HGB Conc 32.9 g/dL (31.8-35.4); Mean Corpuscular Hemoglobin 31.9 pg (27.0-31.2); Mean Corpuscular Volume 96.8 fl (81-99); Nucleated Red Blood Cells % 0 %; Platelet Count 332 K/mm3 (142-424); Red Blood Count 4.11 M/mm3 (4.20-5.40); Red Cell Distribution Width-SD 51.4 fL; White Blood Count 11.3 K/mm3 (4.8-10.8)
[2025-02-20 08:18] LABS: Blood Urea Nitrogen 9 mg/dl (7-17); Calcium 9.4 mg/dl (8.4-10.2); Carbon Dioxide 26 mmol/L (22.0-30.0); Creatinine Clearance Estimated 83 mL/min (50-200); Creatinine,Serum 0.70 mg/dl (0.52-1.04); Estimated Glomerular Filt Rate 87 ml/min (>60); GFR (African American) 105 ML/MIN (>60); Glucose 103 mg/dl (74-100); Potassium 3.5 mmoL/L (3.5-5.1); Sodium 139 mmol/L (136-145)
[2025-02-20] MEDS: HEPARIN 1,000 UNITS/ML 10ML VIAL (CATH LAB) 5000 UNIT IV ×2 (09:12→09:46)
[2025-02-20] MEDS: NITROGLYCERIN 800MCG/8ML SYR (CATH LAB) 800 MCG IA (09:12)
[2025-02-20] MEDS: LIDOCAINE 1% 10ML MDV 10 ML IJ (09:12)
[2025-02-20] MEDS: HEPARIN 1,000 UNITS/500ML NS (CATH LAB) 3000 UNIT IV (09:12)
[2025-02-20] MEDS: 0.9 % SODIUM CHLORIDE 500 ML 25 ML IV (09:13)
[2025-02-20] MEDS: VERAPAMIL 2.5MG/ML 2ML VIAL 2.5 MG IV (09:13)
[2025-02-20] MEDS: ONDANSETRON 4MG/2ML VIAL 4 MG IV (09:17)
[2025-02-20] MEDS: MIDAZOLAM HCL 1MG/ML 5ML VIAL 1 MG IV (09:41)
[2025-02-20] MEDS: FENTANYL 100MCG/2ML VIAL 50 MCG IV (09:41)
[2025-02-20 09:46] LABS: Anion Gap 9.5 mEq/L (5-15); Chloride 107 mmol/L (98-107)
[2025-02-20] MEDS: PRASUGREL 10MG TAB 60 MG PO (09:50)
[2025-02-20] MEDS: IOPAMIDOL-370 (76%);100ML BOTTLE 90 ML IV (12:58)
[2025-02-20] MEDS: IPRATROPIUM/ALBUTEROL 3 ML NEB IH (13:35)
--- NOTE | 2025-02-27 11:05 | PC.NURSE ---
02/27/2025 pt states she has no transportation but is willing to walk at home.
== END 2025-02-20 15:00 | disposition home or self-care (01) ==
PROVIDERS: PCP Nurse Practitioner Family; Visit Provider Internal Medicine
PROC: 4A023N7 Measurement of Cardiac Sampling and Pressure, Left Heart, Percutaneous Approach (ICD-10-PCS; CPT 93452; principal; 2025-02-20 10:00)
DX: I25.119 Atherosclerotic heart disease of native coronary artery with unspecified angina pectoris (principal); R93.1 Abnormal findings on diagnostic imaging of heart and coronary circulation; R06.02 Shortness of breath; J44.9 Chronic obstructive pulmonary disease, unspecified; F17.210 Nicotine dependence, cigarettes, uncomplicated; Z79.82 Long term (current) use of aspirin; Z79.02 Long term (current) use of antithrombotics/antiplatelets; Z79.899 Other long term (current) drug therapy; Z82.49 Family history of ischemic heart disease and other diseases of the circulatory system; Z88.5 Allergy status to narcotic agent
CPT/HCPCS: 80048; 85025; 92928; 93458; 99152; C1725; C1769; C1874; C9600; J1200; J1644; J2405; J3010; J7040; Q9967

== ENCOUNTER 2025-02-23 13:39 | Outpatient (CLI) | payer OTHER, SELFPAY ==
[2025-02-23 14:18] LABS: Hematocrit 41.4 % (37.0-47.0); Hemoglobin 13.3 g/dL (12.2-16.2); Immature Granulocytes % 0.4 %; Mean Corpuscular HGB Conc 32.1 g/dL (31.8-35.4); Mean Corpuscular Hemoglobin 31.5 pg (27.0-31.2); Mean Corpuscular Volume 98.1 fl (81-99); Nucleated Red Blood Cells % 0 %; Platelet Count 332 K/mm3 (142-424); Red Blood Count 4.22 M/mm3 (4.20-5.40); Red Cell Distribution Width-SD 52.4 fL; White Blood Count 10.5 K/mm3 (4.8-10.8)
[2025-02-23 14:46] LABS: Chloride 108 mmol/L (98-107); Potassium 3.6 mmoL/L (3.5-5.1); Sodium 143 mmol/L (136-145)
[2025-02-23 14:49] LABS: Anion Gap 10.6 mEq/L (5-15); Blood Urea Nitrogen 8 mg/dl (7-17); Carbon Dioxide 28 mmol/L (22.0-30.0); Creatinine,Serum 0.60 mg/dl (0.52-1.04); Estimated Glomerular Filt Rate 104 ml/min (>60); GFR (African American) 126 ML/MIN (>60)
[2025-02-23 14:50] LABS: Calcium 9.7 mg/dl (8.4-10.2); Glucose 87 mg/dl (74-100)
== END 2025-02-23 23:59 | disposition home or self-care (01) ==
LOC: LAB 13:39
PROVIDERS: PCP Nurse Practitioner Family; Visit Provider Internal Medicine
DX: I25.10 Atherosclerotic heart disease of native coronary artery without angina pectoris (principal)
CPT/HCPCS: 36415; 80048; 85025